=== PATIENT | male | born 2000 | race African-American/Black ===

== ENCOUNTER 2023-06-19 14:17 | Inpatient (IN) ==
--- NOTE | 2023-06-19 14:31 | Emergency Department Note ---
Impression & Plan Chest pain ADMIT ED Provider Note HPI: History obtained from patient. The patient is a 22-year-old male who presents emergency department with chief complaint of chest pain. Patient states that about 1 hour prior to arrival to the ED he was on a treadmill, he states that he was running for short period of time when he developed some pain in the left side of his chest that was relatively severe. Patient states the pain persisted and therefore he came to the ED to be assessed. On arrival here to the ED the patient is in no acute distress. He is hemodynamically stable and saturating well on room air. He states he does have some continued chest pain in the left part of his chest. ROS: - Per HPI Differential Diagnosis: ACS, pulmonary embolism, aortic dissection, pneumothorax, esophagitis, amongst other potential pathologies. *Outpatient medications and allergy history reviewed. 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: (As interpreted by myself): - An order was placed for continuous cardiac monitoring - Patient was noted to be in sinus rhythm with a rate of 80 EKG #1 (As interpreted by myself): Rate: 57 Rhythm: Sinus bradycardia Intervals: Within normal limits ST changes: There is mild upward sloping ST elevation in leads V1 and V2 with ST depression in leads V4 and V5 Time: 1425 EKG #2: Rate: 69 Rhythm: Normal sinus rhythm Intervals: Within normal limits ST changes: There is ST elevation in leads aVR, V1, V2, there is reciprocal ST depression in leads V4 through V6 and also new inferior lead ST depression in leads II, III, and aVF Time: 1502 Chest x-ray: (As interpreted by myself): No acute disease Interventions provided in ED: -IV morphine, IV Zofran, IV Dilaudid, aspirin Medical Decision Making: Shortly after the patient arrived IV was established and lab work obtained, patient was placed on cardiac nurse specialist. Patient's initial EKG was brought to me by the employment program representative, there are some concerning changes including mild upward sloping ST elevation in leads V1 and V2 with some ST depression in leads V4 and V5. I did review the patient's EKG with the on-call critical care nurse, Dr. Woodward, and decision was made at this time to treat medically and await troponin result. While awaiting lab work patient was given IV morphine and IV Zofran, his chest pain acutely worsened. Patient was given additional pain medication and chest x-ray was performed that did not show any evidence of any acute process per my interpretation. Patient was taken for CT angiography of the chest urgently and upon my review and in discussion with the interpreting radiologist, there is no evidence of any aortic dissection, however there is some nonspecific finding within the LAD concerning for possible thrombus. Repeat EKG was obtained and per my interpretation worsening changes were noted with some ST elevation in leads aVR, V1 and V2, with reciprocal depression worsening in leads V4 through V6. There is also a finding of some ST depression in the inferior leads. At this time heart alert was activated and patient was evaluated the bedside by Dr. Woodward of cardiology. His troponin did return negative. Patient had some hypoxia following IV Dilaudid and was placed on an oxy mask with good improvement. At this time patient was transferred to the cardiac catheterization lab for further management. Case was discussed with the on-call hospitalist, Dr. Guevara, who is in agreement for admission. Consultants/Discussions held with other healthcare providers: -Interventional Cardiology, Dr. Woodward -Hospitalist, Dr. Guevara Disposition discussion held by myself with: -Patient and patient's father over the phone * CRITICAL CARE TIME: ( 55 ) minutes -Management of patient with acute ischemic changes on EKG/ST elevation [place] requiring activation of cardiac catheterization lab, stabilization of hypoxia requiring oxy mask for oxygen saturations at 84% on room air, interpretation of multiple EKGs, discussion with consulting services/interventional radiology, discussion with patient and family over the phone in regards to plan of care, discussion with hospitalist service for arrangement of admission. Diagnosis: 1. ST elevation myocardial infarction, acute 2. Chest pain, acute 3. Hypoxia, acute Disposition: Admission Obinna Tsang DO Emergency Medicine Past Med/Surg History Social History Smoking Status: Never smoker Hx Alcohol Use: No Hx Substance Use: No Preferred Language: Qatari Communication Ability: Effective Low Heel Builder Required: No Beliefs That Will Affect Care: None Current Living Situation: Other Current Living Situation Comment: apartment with room-mate Other Information That Helps Us Care for You: No Feels Safe at Home: Yes Safety Concerns: Feels Safe At This Time Assistive Devices: Contacts Assistive Devices Comment: contacts Allergies Allergies Allergy/AdvReac Type Severity Reaction Status Date / Time No Known Allergies Allergy Verified 06/19/23 15:19 Home Meds Home Medications Medication Instructions Recorded Confirmed No Known Home Medications 06/19/23 06/19/23 Results & Data (ED) Vital Signs Vital Signs - 24 hr 06/19/23 14:27 06/19/23 14:27 06/19/23 14:30 Temperature Temperature Source Pulse Rate 63 Pulse Rate [Apical] Pulse Rate from SpO2 Sensor 64 Respiratory Rate 20 Respiratory Effort / Characteristics Respiratory Depth Blood Pressure 127/92 Blood Pressure [Right Arm] Blood Pressure Mean 111 Blood Pressure Mean [Right Arm] Pulse Oximetry 100 100 Oxygen Delivery Method Room Air Oxygen Flow Rate Sepsis Recent Fever Within 48 Hours Sepsis New/Unexplained Change in Mental Status Sepsis Action Taken by Nursing 06/19/23 14:30 06/19/23 14:37 06/19/23 14:40 Temperature Temperature Source Pulse Rate 57 L Pulse Rate [Apical] Pulse Rate from SpO2 Sensor 56 L Respiratory Rate 16 Respiratory Effort / Characteristics Respiratory Depth Blood Pressure 130/89 Blood Pressure [Right Arm] Blood Pressure Mean 97 Blood Pressure Mean [Right Arm] Pulse Oximetry 100 100 Oxygen Delivery Method Room Air Oxygen Flow Rate Sepsis Recent Fever Within 48 Hours Sepsis New/Unexplained Change in Mental Status Sepsis Action Taken by Nursing 06/19/23 14:40 06/19/23 14:54 06/19/23 14:55 Temperature Temperature Source Pulse Rate 59 L 55 L Pulse Rate [Apical] Pulse Rate from SpO2 Sensor 60 55 L Respiratory Rate 17 23 Respiratory Effort / Characteristics Respiratory Depth Blood Pressure 100/65 Blood Pressure [Right Arm] Blood Pressure Mean 73 Blood Pressure Mean [Right Arm] Pulse Oximetry 98 97 Oxygen Delivery Method Oxygen Flow Rate Sepsis Recent Fever Within 48 Hours Sepsis New/Unexplained Change in Mental Status Sepsis Action Taken by Nursing 06/19/23 14:55 06/19/23 15:00 06/19/23 15:00 Temperature Temperature Source Pulse Rate 55 L 83 Pulse Rate [Apical] Pulse Rate from SpO2 Sensor 56 L 82 Respiratory Rate 23 14 Respiratory Effort / Characteristics Respiratory Depth Blood Pressure 134/95 Blood Pressure [Right Arm] Blood Pressure Mean 107 Blood Pressure Mean [Right Arm] Pulse Oximetry 91 94 Oxygen Delivery Method Oxygen Flow Rate Sepsis Recent Fever Within 48 Hours Sepsis New/Unexplained Change in Mental Status Sepsis Action Taken by Nursing 06/19/23 15:02 06/19/23 15:10 06/19/23 15:16 Temperature 36.5 C Temperature Source Oral Pulse Rate 91 H Pulse Rate [Apical] 80 Pulse Rate from SpO2 Sensor 91 H Respiratory Rate 17 20 Respiratory Effort / Characteristics Non-Labored Respiratory Depth Normal Blood Pressure Blood Pressure [Right Arm] 134/95 Blood Pressure Mean Blood Pressure Mean [Right Arm] 108 Pulse Oximetry 100 94 Oxygen Delivery Method Room Air Oxygen Flow Rate Sepsis Recent Fever Within 48 Hours No Sepsis New/Unexplained Change in Mental Status N/A Sepsis Action Taken by Nursing No Action Required 06/19/23 15:16 06/19/23 15:16 06/19/23 15:18 Temperature Temperature Source Pulse Rate 83 83 Pulse Rate [Apical] Pulse Rate from SpO2 Sensor 78 Respiratory Rate 10 L Respiratory Effort / Characteristics Respiratory Depth Blood Pressure 133/84 Blood Pressure [Right Arm] Blood Pressure Mean 87 Blood Pressure Mean [Right Arm] Pulse Oximetry 84 L Oxygen Delivery Method Oxygen Flow Rate Sepsis Recent Fever Within 48 Hours Sepsis New/Unexplained Change in Mental Status Sepsis Action Taken by Nursing 06/19/23 15:20 06/19/23 15:30 06/19/23 15:31 Temperature Temperature Source Pulse Rate 77 90 Pulse Rate [Apical] Pulse Rate from SpO2 Sensor 74 88 Respiratory Rate 13 25 H Respiratory Effort / Characteristics Respiratory Depth Blood Pressure 114/79 Blood Pressure [Right Arm] Blood Pressure Mean 92 Blood Pressure Mean [Right Arm] Pulse Oximetry 93 91 Oxygen Delivery Method Oxygen Flow Rate Sepsis Recent Fever Within 48 Hours Sepsis New/Unexplained Change in Mental Status Sepsis Action Taken by Nursing 06/19/23 15:31 06/19/23 15:40 06/19/23 15:40 Temperature Temperature Source Pulse Rate 85 Pulse Rate [Apical] Pulse Rate from SpO2 Sensor 86 Respiratory Rate 24 Respiratory Effort / Characteristics Respiratory Depth Blood Pressure Blood Pressure [Right Arm] Blood Pressure Mean Blood Pressure Mean [Right Arm] Pulse Oximetry 87 L 82 L 95 Oxygen Delivery Method Room Air Oxymask Oxygen Flow Rate 10 Sepsis Recent Fever Within 48 Hours Sepsis New/Unexplained Change in Mental Status Sepsis Action Taken by Nursing 06/19/23 15:41 06/19/23 15:45 06/19/23 15:45 Temperature 36.6 C Temperature Source Oral Pulse Rate 74 Pulse Rate [Apical] Pulse Rate from SpO2 Sensor 78 Respiratory Rate 22 Respiratory Effort / Characteristics Respiratory Depth Blood Pressure 121/77 Blood Pressure [Right Arm] Blood Pressure Mean 99 Blood Pressure Mean [Right Arm] Pulse Oximetry 96 Oxygen Delivery Method Oxygen Flow Rate Sepsis Recent Fever Within 48 Hours Sepsis New/Unexplained Change in Mental Status Sepsis Action Taken by Nursing 06/19/23 15:47 06/19/23 17:26 06/19/23 17:28 Temperature Temperature Source Pulse Rate 89 104 H Pulse Rate [Apical] Pulse Rate from SpO2 Sensor 88 Respiratory Rate 20 32 H Respiratory Effort / Characteristics Respiratory Depth Blood Pressure 117/96 Blood Pressure [Right Arm] Blood Pressure Mean 102 Blood Pressure Mean [Right Arm] Pulse Oximetry 93 Oxygen Delivery Method Oxygen Flow Rate Sepsis Recent Fever Within 48 Hours Sepsis New/Unexplained Change in Mental Status Sepsis Action Taken by Nursing 06/19/23 17:30 06/19/23 17:30 Temperature Temperature Source Pulse Rate 92 H Pulse Rate [Apical] Pulse Rate from SpO2 Sensor Respiratory Rate 27 H Respiratory Effort / Characteristics Respiratory Depth Blood Pressure 132/84 Blood Pressure [Right Arm] Blood Pressure Mean 106 Blood Pressure Mean [Right Arm] Pulse Oximetry Oxygen Delivery Method Oxygen Flow Rate Sepsis Recent Fever Within 48 Hours Sepsis New/Unexplained Change in Mental Status Sepsis Action Taken by Nursing Laboratory Data 06/19/23 14:25 06/19/23 14:25 Lab Results 06/19/23 06/19/23 Range/Units 14:25 16:21 WBC 7.81 (4.8-10.8) K/ul RBC 5.23 (4.70-6.10) M/uL Hgb 14.5 (14.0-18.0) g/dl Hct 44.8 (42.0-52.0) % MCV 85.7 (80.0-100.0) fL MCH 27.7 (25.0-34.0) pg MCHC 32.4 (32.0-36.0) g/dL RDW Std Deviation 41.0 (36.4-46.3) fL RDW Coeff of Faby 13.2 (11.5-14.5) % Plt Count 217 (130-400) K/uL MPV 10.9 (9.4-12.4) fL Neutrophils % (Manual) 33 % Lymphocytes % (Manual) 37 % Reactive Lymphs % (Man) 20 % Monocytes % (Manual) 8 % Eosinophils % (Manual) 1 % Basophils % (Manual) 1 % Neutrophils # (Manual) 2.58 (1.40-6.50) K/uL Total Absolute Neuts 2.58 (1.4-6.5) K/uL Lymphocytes # (Manual) 2.89 (1.2-3.4) K/uL Reactive Lymphs # 1.56 K/uL Total Abs Lymphocytes 4.45 H (1.2-3.4) K/uL Monocytes # (Manual) 0.62 H (0.11-0.59) K/uL Eosinophils # (Manual) 0.08 (0-0.50) K/uL Basophils # (Manual) 0.08 (0-0.2) K/uL PT 11.5 (9.0-12.0) Seconds INR 1.1 (0.9-1.1) Activ Coag Time Kaolin 298 H (94-140) SECONDS D-Dimer 290 (0-500) ug/L FEU Sodium 136 (136-145) mmol/L Potassium 3.5 (3.5-5.1) mmol/L Chloride 103 (98-107) mmol/L Carbon Dioxide 26 (21-32) mmol/L Anion Gap 7 (3-11) BUN 12 (6-23) mg/dl Creatinine 1.01 (0.6-1.4) mg/dl Est Cr Clr Drug Dosing 106.3 ml/min Est GFR ( Amer) 120.9 ml/min Est GFR (Non-Af Amer) 104.4 ml/min BUN/Creatinine Ratio 11.9 (10-20) Glucose 130 H (70-99(Fasting)) mg/dl Calcium 9.2 (8.6-10.3) mg/dl Total Bilirubin 0.3 (0.2-1.0) mg/dl AST 27 (13-39) U/L ALT 44 (7-52) U/L Alkaline Phosphatase 86 (34-104) U/L Troponin I High Sens 9.9 (0-20) pg/ml Total Protein 7.1 (6.0-8.3) gm/dl Albumin 3.9 (3.4-5.0) gm/dl Globulin 3.2 (2.5-4.0) gm/dl Albumin/Globulin Ratio 1.2 (0.9-2) Lipase 8 L (11-82) U/L Administered Medications Eptifibatide (Integrilin) 75 mg in 100 mls @ 12.448 mls/hr IV .Q8H2M [facility]; Protocol Stop: 06/20/23 06:00 Last Admin: 06/19/23 17:58 Dose: 2 mcg/kg/min, 12.4 mls/hr Documented By: RASHEED Co-signed By: ELIF Amiodarone HCl/Dextrose (Nexterone / D5w) 360 mg in 200 mls @ 33.333 mls/hr IV ONE ONE; Protocol Stop: 06/19/23 23:25 Last Admin: 06/19/23 17:57 Dose: 1 mg/min, 33.3 mls/hr Documented By: RASHEED Co-signed By: ELIF Norepinephrine Bitartrate (Levophed/D5w) 4 mg in 250 mls @ 14.588 mls/hr IV .Q17H9M [facility]; Protocol Stop: 07/19/23 17:29 Last Admin: 06/19/23 17:58 Dose: Not Given Documented By: RASHEED Discontinued Medications Amiodarone HCl/Dextrose (Amiodarone 360mg / 200ml D5w (Lime Sludge Kiln Operator Use Only)) Confirm Administered Dose 360 mg IV .STK-MED ONE Stop: 06/19/23 16:22 Last Admin: 06/19/23 16:54 Dose: 360 mg Documented By: ALL Amiodarone HCl/Dextrose (Amiodarone 360mg / 200ml D5w (Lime Sludge Kiln Operator Use Only)) Confirm Administered Dose 360 mg IV .STK-MED ONE Stop: 06/19/23 16:46 Last Admin: 06/19/23 16:54 Dose: 360 mg Documented By: ALL Amiodarone HCl/Dextrose (Amiodarone 150mg / 100ml D5w (Lime Sludge Kiln Operator Use Only)) Confirm Administered Dose 150 mg IV .STK-MED ONE Stop: 06/19/23 16:51 Last Admin: 06/19/23 17:56 Dose: Not Given Documented By: RASHEED Aspirin (Aspirin Chew 324 Mg) 324 mg PO NOW STA Stop: 06/19/23 14:55 Last Admin: 06/19/23 14:57 Dose: 324 mg Documented By: ML Atropine Sulfate (Atropine Sulfate 0.1 Mg/Ml 10ml Syr) Confirm Administered Dose 1 mg IV .STK-MED ONE Stop: 06/19/23 16:17 Last Admin: 06/19/23 17:56 Dose: Not Given Documented By: RASHEED Eptifibatide (Eptifibatide 2 Mg/Ml 10 Ml Vial (Lime Sludge Kiln Operator Use Only)) Confirm Administered Dose 40 mg IV .STK-MED ONE Stop: 06/19/23 16:15 Last Admin: 06/19/23 16:53 Dose: 8.6 ml Documented By: ALL Eptifibatide (Eptifibatide 0.75 Mg/Ml 75mg Vial (Lime Sludge Kiln Operator Use Only)) Confirm Administered Dose 75 mg IV .STK-MED ONE Stop: 06/19/23 16:15 Last Increment: 06/19/23 16:53 Dose: 12.3 mg Documented By: ALL Fentanyl Citrate (Fentanyl Citrate Pf 100 Mcg/2 Ml Vial) Confirm Administered Dose 100 mcg .ROUTE .STK-MED ONE Stop: 06/19/23 15:41 Last Increment: 06/19/23 16:51 Dose: 50 mcg Documented By: ALL Furosemide (Furosemide 40 Mg/4 Ml Vial) 40 mg IV ONE ONE Stop: 06/19/23 17:46 Last Admin: 06/19/23 18:15 Dose: 40 mg Documented By: RASHEED Heparin Sodium (Porcine) (Heparin (Porcine) 1000 Unit/Ml 10 Ml (Lime [employer] Operator Use Only)) Confirm Administered Dose 10,000 units .ROUTE .STK-MED ONE Stop: 06/19/23 15:40 Last Admin: 06/19/23 16:50 Dose: 10,000 units Documented By: LAL Heparin Sodium/Sodium Chloride (Heparin In Nss Infusion 1000 Unit/500 Ml (2 U/Ml) Bag) Confirm Administered Dose 3,000 units IV .STK-MED ONE Stop: 06/19/23 15:41 Last Admin: 06/19/23 16:52 Dose: 3,000 units Documented By: ALL Hydromorphone HCl (Hydromorphone Inj 0.5 Mg/0.5 Ml Syr) Confirm Administered Dose 0.5 mg .ROUTE .STK-MED ONE Stop: 06/19/23 15:19 Last Admin: 06/19/23 15:21 Dose: Not Given Documented By: ES Hydromorphone HCl (Hydromorphone Inj 0.5 Mg/0.5 Ml Syr) 0.5 mg IV NOW STA Stop: 06/19/23 15:20 Last Admin: 06/19/23 15:20 Dose: 0.5 mg Documented By: JORDYN Sodium Chloride (Nss) 500 mls @ 999 mls/hr IV .Q31M STA Stop: 06/19/23 14:53 Last Infusion: 06/19/23 15:15 Dose: Infused Documented By: Admin: 06/19/23 14:34 Dose: 999 mls/hr Documented By: ROBERT Influenza Virus Vaccine Quadrival (Influenza Virus Quadrivalent Vaccine (Iiv4) 0.5 Ml Syr) 0.5 ml IM .ONCE ONE Stop: 06/19/23 18:18 Last Admin: 06/19/23 19:30 Dose: Not Given Documented By: MMG Ioversol (Optiray 320 125ml) 119 ml IV ONCE ONE Stop: 06/19/23 15:54 Last Admin: 06/19/23 15:21 Dose: Not Given Documented By: JORDYN Midazolam HCl (Midazolam Hcl 1 Mg/Ml 2ml Vial) Confirm Administered Dose 2 mg .ROUTE .STK-MED ONE Stop: 06/19/23 15:40 Last Increment: 06/19/23 16:50 Dose: 1 mg Documented By: ALL Morphine Sulfate (Morphine Sulfate 4 Mg/Ml 1 Ml Carp\Vial) 4 mg IV NOW STA Stop: 06/19/23 14:31 Last Admin: 06/19/23 14:37 Dose: 4 mg Documented By: ML Morphine Sulfate (Morphine Sulfate 4 Mg/Ml 1 Ml Carp\Vial) 4 mg IV NOW STA Stop: 06/19/23 14:55 Last Admin: 06/19/23 14:57 Dose: 4 mg Documented By: ML Naloxone HCl (Naloxone Hcl 0.4 Mg/1 Ml Vial/Carp) Confirm Administered Dose 0.4 mg .ROUTE .STK-MED ONE Stop: 06/19/23 16:10 Last Admin: 06/19/23 16:53 Dose: Not Given Documented By: ALL Nicardipine HCl (Nicardipine Hcl Inj 2.5 Mg/Ml 10 Ml Amp) Confirm Administered Dose 25 mg .ROUTE .STK-MED ONE Stop: 06/19/23 15:40 Last Admin: 06/19/23 16:51 Dose: 25 mg Documented By: ALL Nitroglycerin/Dextrose (Nitroglycerin/D5w 100mcg/Ml 20ml Syr) Confirm Administered Dose 2,000 mcg .ROUTE .STK-MED ONE Stop: 06/19/23 16:04 Last Admin: 06/19/23 16:52 Dose: 2,000 mcg Documented By: ALL Norepinephrine Bitartrate (Norepinephrine/D5w 4 Mg/250 Ml) Confirm Administered Dose 4 mg IV .STK-MED ONE Stop: 06/19/23 16:17 Last Admin: 06/19/23 16:54 Dose: 4 mg Documented By: ALL Ondansetron HCl (Ondansetron Inj 2 Mg/Ml 2 Ml Vial) 4 mg IV NOW STA Stop: 06/19/23 14:31 Last Admin: 06/19/23 14:35 Dose: 4 mg Documented By: ML Ondansetron HCl (Ondansetron Inj 2 Mg/Ml 2 Ml Vial) 4 mg IV NOW STA Stop: 06/19/23 15:32 Last Admin: 06/19/23 16:51 Dose: Not Given Documented By: ALL Ticagrelor (Ticagrelor 90 Mg Tab) Confirm Administered Dose 180 mg .ROUTE .STK- MED ONE Stop: 06/19/23 16:51 Last Admin: 06/19/23 16:55 Dose: 180 mg Documented By: ALL Imaging Data Radiologist's Impression: Chest X-Ray 06/19/23 14:23 XR chest 1V portable HISTORY: 22 years-old Male Chest pain, nonspecific COMPARISON: CTA chest of same day TECHNIQUE: AP view of the chest FINDINGS: Cardiac silhouette is upper limits of normal in size. No pneumothorax, pleural effusion or airspace consolidation. The bones appear intact. IMPRESSION: No acute process. ACT 112: Negative or not required by law. The above report was generated using voice recognition software. It may contain grammatical, syntax or spelling errors. Electronically signed by: Guillaume Morrell M.D. 06/19/2023 2:58 PM Chest CTA 06/19/23 14:37 CT angio chest dissec wo/w con CT DOSE: 693.09 mGy.cm HISTORY: 22 years-old Male with CP. Acute chest pain with shortness of breath TECHNIQUE: Multiple CTA images of the chest were obtained both with and without the intravenous administration of 119 ml Optiray. Coronal and sagittal MIPS were obtained from the axial data set and were submitted for review. All measurements were obtained according to NASCET criteria. A dose lowering technique was utilized adhering to the principles of ALARA. COMPARISON: Chest radiograph of same day FINDINGS: CTA: The heart is mildly enlarged. No pericardial effusion. Bovine morphology of the thoracic aortic arch. Patency of the imaged great vessels without thoracic aortic aneurysm, dissection or intramural hematoma. No pulmonary emboli identified. The coronary arteries are not well evaluated without cardiac gating however there is a 1.6 cm focus of soft tissue density noted on image 110 series 7 within the region of the left anterior descending artery.. CT CHEST: Unremarkable thyroid. Thymic tissue in the anterior mediastinum. No pathologically enlarged lymph nodes identified. There is no pneumothorax, pleural effusion, or airspace consolidation, pulmonary edema or suspicious pulmonary nodule. The central airways are patent. No acute upper abdominal abnormality. Unremarkable soft tissues. No acute fracture. IMPRESSION: 1. Unremarkable appearance of the thoracic aorta and pulmonary artery. 2. The coronary arteries are not well evaluated without cardiac gating CT. Within the limitations of the study, there is focal abnormality involving the proximal to mid aspect of the left anterior descending artery which should be correlated with EKG and laboratory analysis in order to exclude a thrombus. ACT 112: Negative or not required by law. The above report was generated using voice recognition software. It may contain grammatical, syntax or spelling errors. Electronically signed by: Guillaume Morrell M.D. 06/19/2023 3:20 PM Discharge Plan Visit Data Chief Complaint: Chest Pain Stated Complaint: CHEST PAIN ED Provider: Obinna Tsang Discharge Problem: Chest pain Patient Disposition: Admitted As Inpatient Discharge Instructions Interventions: ED Discharge Assessment Last Done: 06/19/23 15:50 Discharge Problem: Chest pain Qualifiers: Chest pain type: unspecified Qualified Code(s): R07.9 - Chest pain, unspecified
[2023-06-19] MEDS: SODIUM CHLORIDE 0.9% 500 ML IV STA (14:34)
[2023-06-19] MEDS: ONDANSETRON INJ 2 MG/ML 2 ML VIAL IV STA ×2 (14:35→16:51)
[2023-06-19] MEDS: MoRPHine SULFATE 4 MG/ML 1 ML CARP\\VIAL IV STA ×2 (14:37→14:57)
[2023-06-19 14:51] LABS: Hematocrit (blood only) 44.8 % (42.0-52.0); Hemoglobin 14.5 g/dl (14.0-18.0); Mean Corpuscular Hemoglobin 27.7 pg (25.0-34.0); Mean Corpuscular Hgb Conc 32.4 g/dL (32.0-36.0); Mean Corpuscular Volume 85.7 fL (80.0-100.0); Mean Platelet Volume 10.9 fL (9.4-12.4); Platelet Count 217 K/uL (130-400); RDW Coefficient of Variation 13.2 % (11.5-14.5); Red Blood Count 5.23 M/uL (4.70-6.10); White Blood Count 7.81 K/ul (4.8-10.8)
[2023-06-19] MEDS: ASPIRIN CHEW 324 MG PO STA (14:57)
--- NOTE | 2023-06-19 15:00 | XRay Report ---
XR chest 1V portable HISTORY: 22 years-old Male Chest pain, nonspecific COMPARISON: CTA chest of same day TECHNIQUE: AP view of the chest FINDINGS: Cardiac silhouette is upper limits of normal in size. No pneumothorax, pleural effusion or airspace c onsolidation. The bones appear intact. IMPRESSION: No acute process. ACT 112: Negative or not required by law. The above report was generated using voice recognition software. It may contain grammatical, syntax o r spelling errors. Electronically signed by: Guillaume Morrell M.D. 06/19/2023 2:58 PM
[2023-06-19 15:05] LABS: Albumin Globulin Ratio 1.2 (0.9-2); Albumin Level 3.9 gm/dl (3.4-5.0); BUN Creatinine Ratio 11.9 (10-20); Bilirubin,Total 0.3 mg/dl (0.2-1.0); Calcium 9.2 mg/dl (8.6-10.3); Creatinine Clr Calc Pharmacy 106.3 ml/min; Est GFR (African American) 120.9 ml/min; Est GFR (Non-African American) 104.4 ml/min; Globulin 3.2 gm/dl (2.5-4.0); Potassium 3.5 mmol/L (3.5-5.1); Total Protein 7.1 gm/dl (6.0-8.3)
[2023-06-19 15:09] LABS: D Dimer 290 ug/L FEU (0-500); INR 1.1 (0.9-1.1); Prothrombin Time 11.5 Seconds (9.0-12.0)
[2023-06-19 15:10] LABS: Troponin I High Sensitivity 9.9 pg/ml (0-20)
[2023-06-19] MEDS: HYDROmorphone INJ 0.5 MG/0.5 ML SYR IV STA (15:20)
[2023-06-19] MEDS: OPTIRAY 320 125ml IV ONE (15:21)
[2023-06-19] MEDS: HYDROmorphone INJ 0.5 MG/0.5 ML SYR ONE (15:21)
--- NOTE | 2023-06-19 15:22 | CT Scan Report ---
CT angio chest dissec wo/w con CT DOSE: 693.09 mGy.cm HISTORY: 22 years-old Male with CP. Acute chest pain with shortness of breath TECHNIQUE: Multiple CTA images of the chest were obtained both with and without the intravenous admin istration of 119 ml Optiray. Coronal and sagittal MIPS were obtained from the axial data set and wer e submitted for review. All measurements were obtained according to NASCET criteria. A dose lowering technique was utilized adhering to the principles of ALARA. COMPARISON: Chest radiograph of same day FINDINGS: CTA: The heart is mildly enlarged. No pericardial effusion. Bovine morphology of the thoracic aortic arch. Patency of the imaged great vessels without thoracic aortic aneurysm, dissection or intramural hemat chandra. No pulmonary emboli identified. The coronary arteries are not well evaluated without cardiac gat ing however there is a 1.6 cm focus of soft tissue density noted on image 110 series 7 within the reg ion of the left anterior descending artery.. CT CHEST: Unremarkable thyroid. Thymic tissue in the anterior mediastinum. No pathologically enlarged lymph nod es identified. There is no pneumothorax, pleural effusion, or airspace consolidation, pulmonary edema or suspicious pulmonary nodule. The central airways are patent. No acute upper abdominal abnormality. Unremarkable soft tissues. No acute fracture. IMPRESSION: 1. Unremarkable appearance of the thoracic aorta and pulmonary artery. 2. The coronary arteries are not well evaluated without cardiac gating CT. Within the limitations of the study, there is focal abnormality involving the proximal to mid aspect of the left anterior desce nding artery which should be correlated with EKG and laboratory analysis in order to exclude a thromb us. ACT 112: Negative or not required by law. The above report was generated using voice recognition software. It may contain grammatical, syntax o r spelling errors. Electronically signed by: Guillaume Morrell M.D. 06/19/2023 3:20 PM
[2023-06-19 15:42] LABS: ALC (manual) 4.45 K/uL (1.2-3.4); ANC (manual) 2.58 K/uL (1.4-6.5); Basophils # (manual) 0.08 K/uL (0-0.2); Basophils % (manual) 1 %; Eosinophils # (manual) 0.08 K/uL (0-0.50); Eosinophils % (manual) 1 %; Lymphocytes # (manual) 2.89 K/uL (1.2-3.4); Lymphocytes % (manual) 37 %; Monocytes # (manual) 0.62 K/uL (0.11-0.59); Monocytes % (manual) 8 %; Neutrophils # (manual) 2.58 K/uL (1.40-6.50); Neutrophils % (manual) 33 %; Reactive Lymphocytes # (manual) 1.56 K/uL; Reactive Lymphocytes % (manual) 20 %
--- NOTE | 2023-06-19 15:55 | Pre Anesthesia Assessment ---
Date of Service June 19, 2023 Pre Sedation Assessment Vital Signs Temp Pulse Pulse Resp BP BP Pulse Ox 06/19/23 15:40 95 06/19/23 15:40 82 L 06/19/23 15:31 85 24 87 L 06/19/23 15:31 114/79 06/19/23 15:30 90 25 H 91 06/19/23 15:20 77 13 93 06/19/23 15:18 83 06/19/23 15:16 133/84 06/19/23 15:16 83 10 L 84 L 06/19/23 15:16 80 20 134/95 94 06/19/23 15:10 91 H 17 100 06/19/23 15:02 97.7 F 06/19/23 15:00 134/95 06/19/23 15:00 83 14 94 06/19/23 14:55 55 L 23 91 06/19/23 14:55 100/65 06/19/23 14:54 55 L 23 97 06/19/23 14:40 59 L 17 98 06/19/23 14:40 130/89 06/19/23 14:37 100 06/19/23 14:30 57 L 16 100 06/19/23 14:30 127/92 06/19/23 14:27 63 20 100 06/19/23 14:27 100 O2 Del Method O2 Flow Rate 06/19/23 15:40 Oxymask 10 06/19/23 15:40 Room Air 06/19/23 15:31 06/19/23 15:31 06/19/23 15:30 06/19/23 15:20 06/19/23 15:18 06/19/23 15:16 06/19/23 15:16 06/19/23 15:16 Room Air 06/19/23 15:10 06/19/23 15:02 06/19/23 15:00 06/19/23 15:00 06/19/23 14:55 06/19/23 14:55 06/19/23 14:54 06/19/23 14:40 06/19/23 14:40 06/19/23 14:37 Room Air 06/19/23 14:30 06/19/23 14:30 06/19/23 14:27 06/19/23 14:27 Room Air Cardiovascular + regular rate Respiratory + labored breathing Pre-Sedation Airway Assessment Smoking Status: Never smoker Hx Sleep Apnea: No Hx Difficult Intubation: No Short, Thick Neck: No Thyromental Distance: < 3.5 Finger Breadths Oral Cavity: + WNL Mallampati Class: III ASA: ASA3 Procedure Planning Contraindications for Sedation: none Current Medications Reviewed: Yes Notes The planned sedation has been discussed with the patient. Informed Consent was obtained. I have identified the patient, determined the appropriateness of sedation and have assessed the patient immediately prior to the procedure. All medicine(s) and interventions are by my order.
--- NOTE | 2023-06-19 16:02 | Cardiology Consultation ---
Date of Consultation June 19, 2023 Assessment & Plan (1) Acute AR: Plan Presentation concerning for acute AR with possible LAD obstruction. Recommend proceeding with emergent cardiac catheterization and possible PCI. No apparent contraindications to procedure. Discussed risks, benefits, alternatives of procedure with patient and they are willing to proceed. Further recommendations pending findings of coronary angiography. 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 No prior cardiac history. No known medical problems. 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 Chest pain began approximately 1 hour prior to arrival while he was running on treadmill. States he became increasingly short of breath with new progressive, severe left-sided chest pain. In ED chest pain continued to progress. ECG Showed sinus rhythm with evolving ST elevation in V1, V2 and ST depressions in V4 through V6. Initial HS TropI normal. Had CTA which showed unremarkable thoracic aorta, pulmonary arteries but there appeared to be a focal abnormality involving proximal to mid LAD. Stat echo showed LAD distribution wall motion abnormality with EF of 25%. Patient remained hemodynamically stable but continued to have 9 out of 10 chest pain requiring morphine/Dilaudid. Social History: No drugs or tobacco. Family History: No SCD or premature CAD Allergies Allergy/AdvReac Type Severity Reaction Status Date / Time No Known Allergies Allergy Verified 06/19/23 15:19 Home Medications Medication Instructions Recorded Confirmed Type No Known Home Medications 06/19/23 06/19/23 History Patient History Social History Smoking Status: Never smoker Preferred Language: Pashto Feels Safe at Home: Yes Review of Systems Review of Systems: All systems reviewed & are unremarkable except as noted in HPI & below Physical Exam Physical Exam: General: Uncomfortable HEENT: Sclerae anicteric Lungs: Clear anteriorly Cardiac: Regular rate and rhythm, no murmurs. Vascular: 2+ radial Abdomen: Soft, nontender Extremities: Well perfused, no peripheral edema Neuro: Nonfocal Psych: Alert orient x3, lethargic Results & Data Vital Signs (Past 12 Hours) Vital Signs Temp Pulse Pulse Resp BP BP Pulse Ox 06/19/23 15:40 95 06/19/23 15:40 82 L 06/19/23 15:31 85 24 87 L 06/19/23 15:31 114/79 06/19/23 15:30 90 25 H 91 06/19/23 15:20 77 13 93 06/19/23 15:18 83 06/19/23 15:16 133/84 06/19/23 15:16 83 10 L 84 L 06/19/23 15:16 80 20 134/95 94 06/19/23 15:10 91 H 17 100 06/19/23 15:02 97.7 F 06/19/23 15:00 134/95 06/19/23 15:00 83 14 94 06/19/23 14:55 55 L 23 91 06/19/23 14:55 100/65 06/19/23 14:54 55 L 23 97 06/19/23 14:40 59 L 17 98 06/19/23 14:40 130/89 06/19/23 14:37 100 06/19/23 14:30 57 L 16 100 06/19/23 14:30 127/92 06/19/23 14:27 63 20 100 06/19/23 14:27 100 O2 Del Method O2 Flow Rate 06/19/23 15:40 Oxymask 10 06/19/23 15:40 Room Air 06/19/23 15:31 06/19/23 15:31 06/19/23 15:30 06/19/23 15:20 06/19/23 15:18 06/19/23 15:16 06/19/23 15:16 06/19/23 15:16 Room Air 06/19/23 15:10 06/19/23 15:02 06/19/23 15:00 06/19/23 15:00 06/19/23 14:55 06/19/23 14:55 06/19/23 14:54 06/19/23 14:40 06/19/23 14:40 06/19/23 14:37 Room Air 06/19/23 14:30 06/19/23 14:30 06/19/23 14:27 06/19/23 14:27 Room Air PG Care Time/CCT Total # of Minutes Spent Total Time Spent with Patient: Total time spent is greater than 50% in coordination of care (as documented) at patient's floor/unit and/or counseling patient: Coding Level of Care Code 05643 OFFICE CONSULT LVL 4/40M Diagnoses Acute AR I21.9
--- OUTSIDE RECORDS SUMMARY | 2023-06-19 16:09 | External Medical Summary | Continuity of Care Document ---
Author Name Unknown Organization [address] [id number] Care Team Providers Care Foreign Correspondent Name Role Phone Blessing Slater Primary Care Physician [phone] Encounter [facility] [id number] Date(s): 02/04/23 - 02/04/[address] [phone] Encounter Diagnosis Allergic reaction(Discharge Diagnosis) - 02/06/23 GERD (gastroesophageal reflux disease)(Discharge Diagnosis) - 02/06/23 Discharge Disposition: Home or Self Care Attending Physician: MD Bryon, [place] Allergies, Adverse Reactions, Alerts No Known Allergies Assessment and Plan Extracted from: Title:Office Visit Note Author:MD Bryon, [facility] Date:02/04/23 1.Allergic reaction Resolved since 2 days ago w/o medication. Advise to avoid irritant. Return immediately if symptom recurs. 2.GERD (gastroesophageal reflux disease) Chronic. Stable. Continue medication: Omeprazole 20 mg once a day. NoRefill of medication done at this visit. Avoid triggers. Medications omeprazole Start: 02/04/23 9:13:00 EDT Start Date: 02/04/23 Status: Ordered Mental Status 02/04/23 Barriers to Learning one year None evide nt Mandatory Health Literacy Documentation Yes Health Literacy Communication Barriers N ever Primary Language Slovak Problem List Diagnosis Diagnosis Type Effective Dates Health Status Cl inical Service Informant Allergic reaction Discharge Diagnosis 02/06/23 GERD (gastroesophagea l reflux disease) Discharge Diagnosis 02/06/23 Vital Signs Most recent to oldest [Reference Range]: 1 Patient Weight 71.2 kg (02/04/23 9:13 AM) Heart Rate 77 bpm (02/04/23 9:13 AM) Respiratory Rate 16 br/min (02/04/23 9:13 AM) Blood Pressure 104/74mmHg (02/04/23 9:13 AM) Cuff Pulse Pressure 30 mmHg (02/04/23 9:13 AM) Social History Social History Type Response Smoking Status Never smoked cigaret amira Sex Male FCM Outpt Note * MD Bryon, [place]: PERFORM Event Display: FCM Outpt Note Authored Date: [id number] Chief Complaint started tuesday with itching all over. no rash, no bites. nothing visual. tuesday as well not as serious. tuesday started going away. no itching now History of Present Illness 22 y/o M c/o itching all over the body after removing the clothes4 days ago. Not able to sleep atnight. 2 days ago the itching resolved on it's own. No medication taken. States that it could be from drying sheet that he recently use. -GERD. Still taking Omeprazole 20 mg once a day Denies fever, headache, dizziness. Denies nasal congestion, ear pain Denies chest pain or shortness of breath Denies abdominal pain, nausea or vomiting, diarrhea or constipation Denies dysuria, frequency or urgency of urination Denies blood in the urine or stool Denies Numbness, tingling sensation or weakness of the extremities. Denies joint pain or muscle aches. Review of Systems see hpi Physical Exam Vitals & Measurements HR:77(Monitored) RR:16 BP:104/74 SpO2:98% WT:71.2kg WT:71.200kg(Dosing) PHQ2 Data(Data Documented on:02/04/2023 09:13) Emotional health assessment NEGATIVE General: alert and oriented, no acute distress Eye: PERRL, EOMI, normal conjunctiva HENT: normocephalic Neck: supple Resp: Lungs CTA, non-labored respirations, BS equal, symmetrical expansion CV: normal rate and rhythm, no murmur, no gallop, good pulses equal in all extremities, normal peripheral perfusion, no edema MS: normal gait Psychiatric: appropriate mood and affect, normal judgement, non-suicidal skin: no rashes. Assessment/Plan 1.Allergic reaction Resolved since 2 days ago w/o medication. Advise to avoid irritant. Return immediately if symptom recurs. 2.GERD (gastroesophageal reflux disease) Chronic. Stable. Continue medication: Omeprazole 20 mg once a day. NoRefill of medication done at this visit. Avoid triggers. Medications omeprazole Allergies NKA Social History Smoking Status Never smoked cigarettes Family History Hypertension: Mother and Father. Health Status Family Member(s) Recommendations Health Maintenance Pending(in the next year) OverDue Adult Influenza Vaccine due11/13/22and every 1year Due Adult COVID-19 Vaccination due02/06/23Unknown Frequency Adult Tdap/Td Vaccine due02/06/23Unknown Frequency Due In Future Body Mass Index not due until02/04/24and every 1year Satisfied(in the past 1 year) Satisfied Body Mass Index on12/28/22.Satisfied by REILLY Del Rosario [place] Hepatitis C Screening on12/06/22.Satisfied by Contributor_system, [facility] Electronic Signature on File Electronically Reviewed/Signed by: Blessing Slater MD Author Signature Dt/Tm:02/06/2023 05:05 PM Department of Family Medicine VS Patient Care team information Care Team Personnel Name: MD Slater [place] Position: Physician - Family Med Member Role: Primary Care Provider Address: Address: [address] [place] [address], [place] [address]
--- OUTSIDE RECORDS SUMMARY | 2023-06-19 16:09 | External Medical Summary | Continuity of Care Document ---
Author Name Unknown Organization [address] Address [address] [place] [id number] Care Team Providers Care Brick Sorter Name Role Phone Blessing Slater Primary Care Physician [phone] [facility] [id number] Date(s): 12/28/22 - [facility]28/[address] [facility] [facility] [address] [address] [phone] Encounter Diagnosis Healthcare maintenance(Discharge Diagnosis) - 12/27/22 Body mass index [BMI] 23.0-23.9, adult(Discharge Diagnosis) - 12/28/22 Hyperlipidemia(Discharge Diagnosis) - 12/28/22 Elevated liver enzymes(Discharge Diagnosis) - 12/28/22 Discharge Disposition: Home or Self Care Attending Physician: MD Bryon, [place] Allergies, Adverse Reactions, Alerts No Known Allergies Assessment and Plan Extracted from: Title:Office Visit Note Author:MD Bryon, [facility] Date:12/28/22 1.Healthcare maintenance - encouraged diet and exercise regimen appropriate for patient age and condition - routine dental and eye care per continuity - vaccinations reviewed and up to date per EHR -screening labs reviewed 2.Hyperlipidemia Discussed at length about high cholesterol with elevated liver enzymes. Advised diet and exercise. Recommended Mediterranean diet. Repeat in 6 months. 3.Elevated liver enzymes Probably cause by hyperlipidemia. Return to clinic in 6 months. Medications No Known Medications Mental Status 12/28/22 Barriers to Learning one year None evide nt Mandatory Health Literacy Documentation Yes Health Literacy Communication Barriers N ever Primary Language Maldivian Problem List Diagnosis Diagnosis Type Effective Dates Health Status Clinical Service Informant Healthcare maintenance Discharge Diagnosis 12/27/22 Body mass index [BMI] 23.0-23.9, adult Discharge Diagnosis 12/28/22 Non-Specified Hyperlipidemia Discharge Diagnosis 12/28/22 Elevated liver enzymes Discharge Diagnosis 12/28/22 Vital Signs Most recent to oldest [Reference Range]: 1 Height 170.5 cm (12/28/22 2:26 PM) Patient Weight 69.3 kg (12/28/22 2:26 PM) Body Mass Index 23.84 kg/m2 (12/28/22 2:26 PM) Heart Rate 82 bpm (12/28/22 2:26 PM) Respiratory Rate 16 br/min (12/28/22 2:26 PM) Blood Pressure 120/80mmHg (12/28/22 2:26 PM) Cuff Pulse Pressure 40 mmHg (12/28/22 2:26 PM) Social History Social History Type Response Smoking Status Never smoked cigaret amira Sex Male FCM Outpt Note * MD Bryon, [place]: PERFORM Event Display: FCM Outpt Note Authored Date: [id number] Chief Complaint CPE History of Present Illness 22y/o M here for CPE CC: No acute complaints at this time. HOSPITALIZATIONS: No hospitalizations in the last 12 months or severe acute injuries not accounted for in chart. DENTAL: Routine dental care without complaint: Q 6 months EYE: Routine eye care without issue presently: Q 1-2 years Medical Hx: H.pylori infection recently treated gerd PSHX: none FHx: no heart disease SHX: Tobacco-no Alcohol-no Illicit drug use-no exercise : 1-2x / week treadmill. tea, protein, snack, no fruits sexually active, condom, just 1 partner IMMUNIZATIONS: Reviewed in EHR. Immunizations that are due: Up To Date COVID Vaccine:2 COVID Boosters:2 COVID Infection SAFETY: Feeling safe at home and in relationships without concern. PSA: Reviewed AUA recommendations for PSA age 55-70 Q2 years. COLONOSCOPY: Reviewedlast COLO and need for next COLO: Denies fever, headache, dizziness. Denies nasal congestion, ear pain Denies chest pain or shortness of breath Denies nausea or vomiting, diarrhea or constipation Denies dysuria, frequency or urgency of urination Denies blood in the urine or stool Denies Numbness, tingling sensation or weakness of the extremities. Denies joint pain or muscle aches. Review of Systems see hpi Physical Exam Vitals & Measurements HR:82(Monitored) RR:16 BP:120/80 SpO2:9% HT:170.5cm WT:69.300kg(Dosing) WT:69.3kg BMI:23.84 PHQ2 Data(Data Documented on:12/28/2022 14:26) Emotional health assessment NEGATIVE General: alert and oriented, no acute distress Eye: PERRL, EOMI, normal conjunctiva HENT: normocephalic, TMs clear, normal hearing, moist oral mucosa, no pharyngeal erythema, no sinus tenderness Neck: supple, non-tender, no lymphadenopathy, no thyromegaly Resp: Lungs CTA, non-labored respirations, BS equal, symmetrical expansion CV: normal rate and rhythm, no murmur, no gallop, good pulses equal in all extremities, normal peripheral perfusion, no edema GI: soft, non-tender, non-distended, normal bowel sounds, no organomegaly : no CVA tenderness MS: normal ROM, normal strength, no tenderness, no swelling, no deformity, normal gait Integumentary: warm, dry, pink, no cyanosis, intact, moist, no pallor, no rash Neurologic: alert and oriented, normal sensory, normal motor, no focal Psychiatric: calm and cooperative, appropriate mood and affect, normal judgement, non-suicidal Assessment/Plan 1.Healthcare maintenance - encouraged diet and exercise regimen appropriate for patient age and condition - routine dental and eye care per continuity -vaccinations reviewed and up to date per EHR -screening labs reviewed 2.Hyperlipidemia Discussed at length about high cholesterol with elevated liver enzymes. Advised diet and exercise. Recommended Mediterranean diet. Repeat in 6 months. 3.Elevated liver enzymes Probably cause by hyperlipidemia. Return to clinic in 6 months. Allergies NKA Social History Smoking Status Never smoked cigarettes Family History Hypertension: Mother and Father. Health Status Family Member(s) Recommendations Health Maintenance Pending(in the next year) OverDue Adult Influenza Vaccine due11/13/22and every 1year Due Adult COVID-19 Vaccination due12/28/22Unknown Frequency Adult Tdap/Td Vaccine due12/28/22Unknown Frequency Hepatitis C Screening due12/28/22One-time only Due In Future Body Mass Index not due until12/28/23and every 1year Satisfied(in the past 1 year) Satisfied Body Mass Index on12/28/22.Satisfied by REILLY Del Rosario [place] Hepatitis C Screening on12/06/22.Satisfied by Contributor_system, [facility] Electronic Signature on File Electronically Reviewed/Signed by: Blessing Slater MD Author Signature Dt/Tm:12/28/2022 09:19 PM Department of Family Medicine VS Patient Care team information Care Team Personnel Name: MD Bryon, Blessing Position: Physician - Family Med Member Role: Primary Care Provider Address: Address: [address] [place] [address], [place] [address]
--- NOTE | 2023-06-19 16:11 | History & Physical Report ---
Date of Service June 19, 2023 Assessment & Plan (1) ST elevation myocardial infarction (STEMI) involving left anterior de scending (LAD) coronary artery in recovery phase: Plan: ACS, 100% LAD occlusion, PCI c/w VF x1 Rapid onset of 8/10 - 10/10 pain after being on the treadmill for several minutes. Presented to the ER for severe chest pain. Initial EKG was with ST depressions in V4/V5 and sinusoidal T wave in V1. Repeat EKG concerning for ST elevation in V2 and developing hyperacute T waves. CTA of the chest with unremarkable thoracic aorta and pulmonary artery. Coronary artery evaluation limited by modality however was concerning for a focal abnormality at the proximal to mid LAD. Reportedly had had leg pain prior to onset of his chest pain.At initial evaluation D-dimer was normal, troponin was normal, and CBC unremarkable. He was taken emergently to the [facility]. Stat echo was performed while in the ER, 25% EF with LAD territory abnormalities. Trop x 1 trended -He denies family history of early heart disease, CT in his parents/grandparents , and denies any family history of sudden cardiac Denies alcohol, tobacco, cocaine, supplement, and anabolic steroid use While undergoing cardiac catheterization. Patient did experience an episode of V-fib and received into relation x 1 with return to sinus rhythm . Sinus rhythm at time of assessment. Also w/ periprocedural hypoxia, improving post procedure. Chest x-ray is negative; D-dimer negative; CTA of the chest without acute pulmonary disease s/p PCI with SUSANA x1 to 100% LAD occlusion. Also w/ Subtotal mid RCA, 1% chronic distal RCA with collaterals noted. Patient is dissipated to have a staged PCI of the mid circumflex this hospitalization Cardiology consulted. Recommend Integrilin drip overnight, Amio drip overnight. Patient was transiently on norepinephrine this has been weaned at time of assessment in the ICU. Patient continued on DAPT with Brilinta, atorvastatin 80 mg, lipid panel/lpA/lpB pending. Patient is noted to have a residual - CBC, BMP daily Disposition: ICU CODE STATUS: Full code Diet: Heart healthy History of Present Illness Primary Care Provider: NO PCP Bruce is a 22-year-old male who presents to the ER as a heart alert. No prior cardiac hx or comorbidities. Bruce is seen At the bedside postcatheterization. Following transfer to the ICU he has had complete resolution of the pain that caused him to present to the ER. He reports he has never had chest pain leading up to this episode either of the severity he experienced or in a lesser degree. He reports that he tries to use a treadmill at least 2-3 times a week and has done so for a long time and has never had his exercise limited by chest pain or unusual shortness of breath. He reports his symptoms developed rapidly with a sudden escalation to 810/10 prior to admission after only being on the treadmill for short time. He denies any history of medical problems and takes no chronic medications or supplements. He denies recreational drug use and specifically denies cocaine, steroid use, supplement use. He does not use tobacco products or drink alcohol. 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 He reports he has no known family history of heart disease, diabetes, or sudden cardiac . He does have a family history of hypertension. Denies history of lung disease including asthma, and no history of COPD in his family. Medical History: Reviewed Medications: Reviewed Surgical History: Reviewed Family history: Reviewed Allergies: Reviewed Social History: No tobacco, etoh, or recreational drug use Code Status: Full Allergies Allergy/AdvReac Type Severity Reaction Status Date / Time No Known Allergies Allergy Verified 06/19/23 15:19 Home Medications Medication Instructions Recorded Confirmed Type No Known Home Medications 06/19/23 06/19/23 History Past Med/Surg History Social History Smoking Status: Never smoker Preferred Language: Finnish Feels Safe at Home: Yes Physical Exam Physical Exam: General: A&Ox3. NAD. Cooperative. HEENT: Atraumatic, normocephalic. Vision/hearing grossly intact without deficit. Pupils equal and reactive to light Pulm: CTAB A&P. -wheezes, -rales, -rhonchi. Symmetrical chest rise. No increased work of breathing. No respiratory distress. Cardiac: RRR, -mrg. Radial pulses intact and symmetrical. Abdominal: Nontender, nondistended, soft. BS present. Extremities: Right radial TR band in place. Sensation intact in all fingertips. Finger flexion/extension intact bilaterally. Results & Data Results & Data Vital Signs (Past 12 Hours) Vital Signs Temp Pulse Pulse Resp BP BP Pulse Ox 06/19/23 15:40 95 06/19/23 15:40 82 L 06/19/23 15:31 85 24 87 L 06/19/23 15:31 114/79 06/19/23 15:30 90 25 H 91 06/19/23 15:20 77 13 93 06/19/23 15:18 83 06/19/23 15:16 133/84 06/19/23 15:16 83 10 L 84 L 06/19/23 15:16 80 20 134/95 94 06/19/23 15:10 91 H 17 100 06/19/23 15:02 36.5 C 06/19/23 15:00 134/95 06/19/23 15:00 83 14 94 06/19/23 14:55 55 L 23 91 06/19/23 14:55 100/65 06/19/23 14:54 55 L 23 97 06/19/23 14:40 59 L 17 98 06/19/23 14:40 130/89 06/19/23 14:37 100 06/19/23 14:30 57 L 16 100 06/19/23 14:30 127/92 06/19/23 14:27 63 20 100 06/19/23 14:27 100 O2 Del Method O2 Flow Rate 06/19/23 15:40 Oxymask 10 06/19/23 15:40 Room Air 06/19/23 15:31 06/19/23 15:31 06/19/23 15:30 06/19/23 15:20 06/19/23 15:18 06/19/23 15:16 06/19/23 15:16 06/19/23 15:16 Room Air 06/19/23 15:10 06/19/23 15:02 06/19/23 15:00 06/19/23 15:00 06/19/23 14:55 06/19/23 14:55 06/19/23 14:54 06/19/23 14:40 06/19/23 14:40 06/19/23 14:37 Room Air 06/19/23 14:30 06/19/23 14:30 06/19/23 14:27 06/19/23 14:27 Room Air PG Care Time/CCT Total # of Minutes Spent Total Time Spent with Patient: Total time spent is greater than 50% in coordination of care (as documented) at patient's floor/unit and/or counseling patient: Coding Level of Care Code 94222 INT INP/OBS CARE MIN Diagnoses ST elevation myocardial infarction (STEMI) involving left anterior descending (LAD) coronary artery in recovery phase I21.02
[2023-06-19] MEDS: HEPARIN (PORCINE) 1000 UNIT/ML 10 ML (CATH LAB USE ONLY) ONE (16:50)
[2023-06-19] MEDS: MIDAZOLAM HCL 1 MG/ML 2ML VIAL ONE (16:50)
[2023-06-19] MEDS: niCARdipine HCL INJ 2.5 MG/ML 10 ML AMP ONE (16:51)
[2023-06-19] MEDS: fentaNYL citrate PF 100 MCG/2 ML VIAL ONE (16:51)
[2023-06-19] MEDS: NITROGLYCERIN/D5W 100MCG/ML 20ML SYR ONE (16:52)
[2023-06-19] MEDS: NALOXONE HCL 0.4 MG/1 ML VIAL/CARP ONE (16:53)
[2023-06-19] MEDS: EPTIFIBATIDE 2 MG/ML 10 ML VIAL (CATH LAB USE ONLY) IV ONE (16:53)
[2023-06-19] MEDS: EPTIFIBATIDE 0.75 MG/ML 75MG VIAL (CATH LAB USE ONLY) IV ONE (16:53)
[2023-06-19] MEDS: AMIODARONE 360MG / 200ML D5W (CATH LAB USE ONLY) IV ONE ×2 (16:54)
[2023-06-19] MEDS: NOREPINEPHRINE/D5W 4 MG/250 ML IV ONE (16:54)
[2023-06-19] MEDS: TICAGRELOR 90 MG TAB ONE (16:55)
[2023-06-19] MEDS ORDERED: ACETAMINOPHEN 325 MG TAB PO PRN (17:21)
[2023-06-19] MEDS ORDERED: EPTIFIBATIDE BOLUS/DRIP IV STA (17:21)
[2023-06-19] MEDS ORDERED: NITROGLYCERIN SL 0.4 MG/TAB TAB SL PRN (17:21)
--- NOTE | 2023-06-19 17:21 | Post Anesthesia Assessment ---
Date of Service June 19, 2023 Post Sedation Assessment Vital Signs Temp Pulse Pulse Resp BP BP Pulse Ox 06/19/23 15:40 95 06/19/23 15:40 82 L 06/19/23 15:31 85 24 87 L 06/19/23 15:31 114/79 06/19/23 15:30 90 25 H 91 06/19/23 15:20 77 13 93 06/19/23 15:18 83 06/19/23 15:16 133/84 06/19/23 15:16 83 10 L 84 L 06/19/23 15:16 80 20 134/95 94 06/19/23 15:10 91 H 17 100 06/19/23 15:02 97.7 F 06/19/23 15:00 134/95 06/19/23 15:00 83 14 94 06/19/23 14:55 55 L 23 91 06/19/23 14:55 100/65 06/19/23 14:54 55 L 23 97 06/19/23 14:40 59 L 17 98 06/19/23 14:40 130/89 06/19/23 14:37 100 06/19/23 14:30 57 L 16 100 06/19/23 14:30 127/92 06/19/23 14:27 63 20 100 06/19/23 14:27 100 O2 Del Method O2 Flow Rate 06/19/23 15:40 Oxymask 10 06/19/23 15:40 Room Air 06/19/23 15:31 06/19/23 15:31 06/19/23 15:30 06/19/23 15:20 06/19/23 15:18 06/19/23 15:16 06/19/23 15:16 06/19/23 15:16 Room Air 06/19/23 15:10 06/19/23 15:02 06/19/23 15:00 06/19/23 15:00 06/19/23 14:55 06/19/23 14:55 06/19/23 14:54 06/19/23 14:40 06/19/23 14:40 06/19/23 14:37 Room Air 06/19/23 14:30 06/19/23 14:30 06/19/23 14:27 06/19/23 14:27 Room Air Recovery Score Activity: Moves 4 extremities Respiration: Deep Breath/Cough Circulation: +/-20% PreAnes Value Consciousness: Fully Awake Oxygen Saturation: O2 needed for >90% Discharge Sedation Level of Care: Fast Track Phase II Post Sedation Plan On clinical assessment, the patient appears to have tolerated the sedation without complications. Patient is recovering as anticipated. Patient will continue to be monitored by nursing and may be discharged when sedation discharge criteria are met per below protocol. Upon Completions of procedure up to 15 minutes continue every 5 minute vital signs and the P.A.R. score; then discharge to a Phase I or Fast Track to Phase II per the following guidelines: * Discharge Patient to appropriate Phase II area if PAR is 8 or greater or return to pre- procedure baseline. The post - procedure orders will be as directed. * If PAR score is less than 8 or not return to pre-procedure baseline then patient will follow Phase I monitoring till PAR is reached for Phase II. The Phase I may be done in procedure room or may call to secure a Phase I area. * If naloxone or flumazenil are used for reversal, hold in Phase I for continued monitoring from when last reversal dose was given for a minimum of 60 minutes or longer pending the nurse and/or physician discretion of patient condition before discharge to Phase II. Please call the Sedation Physician to re-evaluate and complete post-note for discharge to Phase II area. Do NOT discharge from procedure sedation or Phase 1 until post- sedation evaluation note is complete by procedure /sedation MD Sedation Discharge Instructions to be given to the patient at discharge to home.
[2023-06-19] MEDS ORDERED: STAT IV Infusion **Titration per Protocol STA (17:26)
[2023-06-19] MEDS ORDERED: 0.2 MICRON FILTER SET 1 EACH IV ONE (17:26)
--- NOTE | 2023-06-19 17:36 | Cardiac Catheterization ---
[facility] Data: Endocrinologist Cardiac Status Clinical evaluation leading to the procedure CAD Presenation: STEMI Anginal Classification: CCS IV Diagnostic Physicians Name: Bk Woodward MD Closure Device Recommendations: PCI without planned CABG Cardiac Cath Procedure Full Procedure Date June 19, 2023 Pre-Procedure Diagnosis Pre-Procedure Diagnosis: STEMI AUC Score AUC Score: 9 Post-Procedure Diagnosis Post-Procedure Diagnosis: Severe CAD, Successful PCI and Elevated Intracardiac Pressures Procedure(s) Performed Procedure(s) Performed: Coronary Angiography and Left Heart Cath Educational Paraprofessional Bk Woodward MD Food Runner(s) [place] Estimated Blood Loss Estimated Blood Loss: 15 Medication(s) Medication(s): Fentanyl, Heparin, Lidocaine 1%, Nicardipine, Nitroglycerin and Versed Medication(s): Ticagrelor Summary of Findings Indication: Heart alert/STEMI Access: 6Fr right radial artery Catheters: EBU 3.5 guide, diagnostic JR4 Findings: LM -normal caliber, no significant disease LAD -acute 100% proximal occlusion Circumflex -medium caliber vessel, focal 90% hazy stenosis in the midsegment after medium OM 3. Following stenosis distal vessel is ectatic with 60% stenosis in proximal left PLB. Distal AV groove circumflex provides left to right collaterals to PDA/distal RCA. RCA -dominant, medium caliber, mild diffuse proximal disease, subtotal mid occlusion with VIOLETTE I flow reconstitution in latemid segment prior to 100% chronic distal total occlusion. LVEDP -30 -- PCI -- Antithrombotic therapy: Heparin, ticagrelor, Integrilin Procedure: Hypoxic requiring nonrebreather after narcotics in ED Catheter navigated to ascending aorta over wire. Wire passed across aortic valve and LV and developed sustained VF requiring defibrillation x 1 with return to sinus rhythm Started on amiodarone infusion for continued ventricular ectopy Left main cannulated with EBU 3.5 guide Scrum Product Owner 50 wire passed across lesion into distal vessel Proximal LAD lesion predilated with 2.5 compliant balloon Started on Integrilin infusion for heavy thrombus burden Dilated lesion stented with 3.5 x 33 mm Xience drug-eluting stent extending back to almost ostium IVUS showed well apposed stent with no apparent edge complications. Mild ostial LAD residual disease. Left main without significant disease Stent post-dilated with 4.0 noncompliant balloon IC vasodilators administered for spasm Noted to have no reflow in apical LAD but secondary to showered thrombus. Gentle inflation to apical LAD with 2.0 balloon with partially improved flow. Still some residual thrombus in very small LAD as wraps around apex. Post procedure VIOLETTE 3 flow, stent well expanded with minimal residual stenosis and no apparent cardiac complications. Arterial Closure: TR band Summary: 1. Acute 100% proximal LAD occlusion 2. Severe multivessel non-culprit coronary artery disease 90% focal mid circumflex prior to ectatic distal segment -Subtotal mid RCA, 100% chronic distal RCA total occlusion with [id number] collaterals 3. Elevated intracardiac filling pressure 4. Successful PCI of proximal to mid LAD with single drug-eluting stent (3.5 x 33 mm Xience; postdilated with 4.0 NC). Recommendations: Admit to ICU for continued monitoring Loaded with ticagrelor 180 mg in Endocrinologist. Continue dual-antiplatelet therapy for at least 1 year. With apical LAD thrombus continue Integrilin infusion for 12 hours Wean norepinephrine as able Continue amiodarone infusion overnight Trend troponins until peak, High-dose statin Plan on staged PCI of mid circumflex later this hospitalization. Medical management of chronic RCA occlusion. Hemodynamics Rest Ao:: 142/76/83 Final Ao: 109/77/92 LV: 91/30 Recommendations Recommendations: PCI without planned CABG Radiation Exposure (mGy) 1696 Contrast (mls) 120 Anesthesia 3731-0535 Procedural Complication(s) None Disposition ICU I attest to the content of the Intraoperative Record and any orders documented therein. Any exceptions are noted below. [facility] Card Cath Procedure Codes Cardiac Catheterization Procedure 1: Cardiovascular Cath Procedures: 63939 Coronaries and LHC (+/-LV) Therapeutic Services & Ancillary Procedure 1: Cardiovascular Tx and Anc Procedures: 34450 IV Ultrasound (Coronary or Graft) Moderate Sedation Procedure 1: Sedation/Anesthesia: 65800 Mod Sedation by the same physician;Init15 Min Child Age 5 & Up Procedure 2: Sedation/Anesthesia: 57871 Mod Sedation by the same physician; Ea [id number] Minutes Stenting Procedure 1: Cardiovascular Stent Procedures: 94774 Perc transluminal revascularization of acute sub/total occl, aMI PG Care Time/CCT Total # of Minutes Spent Total Time Spent with Patient: Total time spent is greater than 50% in coordination of care (as documented) at patient's floor/unit and/or counseling patient:
[2023-06-19] MEDS: AMIODARONE 150MG / 100ML D5W (CATH LAB USE ONLY) IV ONE (17:56)
[2023-06-19] MEDS: ATROPINE SULFATE 0.1 MG/ML 10ML SYR IV ONE (17:56)
[2023-06-19] MEDS: AMIODARONE / D5W 360 MG/200 ML BAG IV ONE (17:57)
[2023-06-19] MEDS: EPTIFIBATIDE 75 MG/100 ML VIAL IV SCH (17:58)
[2023-06-19] MEDS: NOREPINEPHRINE/D5W 4 MG/250 ML PLCT IV SCH (17:58)
[2023-06-19] MEDS: FUROSEMIDE 40 MG/4 ML VIAL IV ONE (18:15)
--- NOTE | 2023-06-19 19:03 | Critical Care Consultation ---
Date of Consultation June 19, 2023 Assessment & Plan (1) ST elevation myocardial infarction (STEMI) involving left anterior descending (LAD) coronary artery in recovery phase: (2) CAD (coronary artery disease): Plan Reason Critically Ill: 22 YOM presented to the EMD with acute onset of chest pain, underwent ermergent cath with SUSANA to LAD and found to have residual CAD. To the ICU post procedure on Integrilin and amiodarone infusion. Neuro - No acute needs CAM ICU: NEGATIVE - Awake and appropriate Cardiac - CAD, STEMI post SUSANA to LAD, Depressed EF, Elevated PAOP/LEVDP - Patient s/p stent with residual walker river vessel CAD to RCA and Circ- continue Integrilin for 12 hours per interventional cardiology - Lasix 40mg IV given- may need to repeat later in the day as still with oxygen need and bilateral crackles with dyspnea - EF on ECHO noted at 25% prior to intervention - Levophed weaned off - should improve following diuresis and without sedation - DAPT Therapy per cardiology - high dose statin - lipid panel pending - no family history reported - Continue Amiodarone at this time for ventricular ectopy noted during cath- defer follow on therapy to cardiology. Respiratory - Hypoxia - Likely secondary from decreased EF resulting in pulmonary edema- diurese as hemodynamics allow - follow- currently doing well on 2LNC - uptitrated or NIPPV if needed GI - No acute needs - advance diet as tolerated RENAL/LYTES - No acute needs - ICU electrolyte protocol - No acute needs ENDO - NO acute needs HEME - NO acute needs ID - NO concern for infectious etiology at this time LINES/IV ACCESS - PIV Continue use of these lines DVT PROPHYLAXIS - SCDS, ASA/Brilinta, Integrilin, ambulation in morning DISPO: ICU until proven hemodynamically and electrically stable from cardiology perspective I have personally spent 45 minutes of critical care time in the direct management of this patient. This is a life/limb threatening event. This includes time spent evaluating patient, direct bedside care, chart review, placing orders, interpretation of diagnostic studies, discussion with consultants, patient, and family members, as well as other required patient management activities. This time is exclusive of all separately billable procedures, and teaching time and separate from and in addition to any other critical care service time. Thank you for allowing us to participate in the care of this patient. Please refer to my attending physician's documentation for any further recommendations. History of Present Illness Reason for Consultation: Post PCI with SUSANA to LAD Requesting Physician: Avelino Guevara MD Attending Physician: Avelino Guevara MD History of Present Illness [address] [employer]: Reports no medical history and no current medications/supplements. The patient came to the EMD today for complaints of chest pain while on the treadmill. He was noted to have ECG changes and likely acute thrombus to LAD on CTA of the chest. He was taken to the rn labor and delivery for evaluation and therapy. In the rn labor and delivery the patient was found to have 100% LAD occlusion in the proximal segment, and got SUSANA to that vessel. He was also found to have CAD in RCA 100% distal with collaterals, and 90% circumflex. Experienced ventricular ectopy during the procedure for which he was loaded with amiodarone 150mg and followed with infusion during the case. He was also noted with LVEDP of 30 in the rn labor and delivery, for which he was given 40mg of Lasix post procedure. 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 Patient was evaluated in the ICU room. He is on NC feels some shortness of breath, but is free of pain. CODE: FULL Allergies Allergy/AdvReac Type Severity Reaction Status Date / Time No Known Allergies Allergy Verified 06/19/23 15:19 Home Medications Medication Instructions Recorded Confirmed Type No Known Home Medications 06/19/23 06/19/23 History Patient History Social History Smoking Status: Never smoker Hx Alcohol Use: No Hx Substance Use: No Preferred Language: Kazakh Communication Ability: Effective Clinical Evaluator Required: No Beliefs That Will Affect Care: None Current Living Situation: Other Current Living Situation Comment: apartment with room-mate Other Information That Helps Us Care for You: No Feels Safe at Home: Yes Safety Concerns: Feels Safe At This Time Assistive Devices: Contacts Assistive Devices Comment: contacts Review of Systems Review of Systems: REVIEW OF SYSTEMS: Constitutional: No fever, sweats or chills Eyes: No diplopia, no worsening or blurred vision ENT: normal hearing, no trouble swallowing Respiratory: (+) cough, dyspnea , NO sputum, Cardiovascular: No chest pain currently, tightness or palpitations Abdomen: No pain, nausea, vomiting, diarrhea or constipation Musculoskeletal: No joint pain, calf pain, swelling Neurologic: No weakness, numbness/tingling, or balance problems Psychiatric: No anxiety or depression Skin: No rash or itch Physical Exam Physical Exam: PHYSICAL EXAM: General: awake, alert, no apparent distress Head: Normocephalic, atraumatic ENT: PERRL, EOMI, no pharyngeal exudate, mucous membranes moist Neuro: AAO x 3, speech clear and appropriate, strength intact bilaterally 5/5, sensation intact and equal all extremities and dermatomes, no pronator drift Chest: equal rise and fall of the chest, no accessory muscle use, no heaves or thrills, scattered crackles throughout bilaterally on 2LNC humidified Cardiac: Regular rate and rhythm, telemetry reviewed- NSR, skin warm dry, cap refill <3 seconds, peripheral pulses +2 no JVD, no murmur, no edema GI: NABS x 4 quadrants, soft, nontender to palpation, no rebound, guarding or tenderness : Spontaneously voiding, no pain, no CVA tenderness, Extremities: Normal inspection, no peripheral edema or erythema, calfs nontender to palpation Psych: Normal mood and affect Skin: no rash or erythema Results & Data Results & Data Vital Signs (Past 12 Hours) Vital Signs Temp Pulse Pulse Resp BP BP Pulse Ox 06/19/23 18:15 121/73 06/19/23 18:15 88 20 89 L 06/19/23 18:01 93 H 22 96 06/19/23 18:01 121/77 06/19/23 18:00 91 H 19 97 06/19/23 17:45 135/86 06/19/23 17:45 89 27 H 89 L 06/19/23 17:38 89 27 H 93 06/19/23 17:38 127/80 06/19/23 17:36 06/19/23 17:36 93 H 26 H 127/80 92 06/19/23 17:33 06/19/23 17:33 88 06/19/23 17:30 132/84 06/19/23 17:30 92 H 27 H 06/19/23 17:28 104 H 32 H 06/19/23 17:26 117/96 06/19/23 15:47 89 20 93 06/19/23 15:45 74 22 96 06/19/23 15:45 121/77 06/19/23 15:41 36.6 C 06/19/23 15:40 95 06/19/23 15:40 82 L 06/19/23 15:31 85 24 87 L 06/19/23 15:31 114/79 06/19/23 15:30 90 25 H 91 06/19/23 15:20 77 13 93 06/19/23 15:18 83 06/19/23 15:16 133/84 06/19/23 15:16 83 10 L 84 L 06/19/23 15:16 80 20 134/95 94 06/19/23 15:10 91 H 17 100 06/19/23 15:02 36.5 C 06/19/23 15:00 134/95 06/19/23 15:00 83 14 94 06/19/23 14:55 55 L 23 91 06/19/23 14:55 100/65 06/19/23 14:54 55 L 23 97 06/19/23 14:40 59 L 17 98 06/19/23 14:40 130/89 06/19/23 14:37 100 06/19/23 14:30 57 L 16 100 06/19/23 14:30 127/92 06/19/23 14:27 63 20 100 06/19/23 14:27 100 Pulse Ox O2 Del Method O2 Del Method O2 Flow Rate O2 Flow Rate 06/19/23 18:15 06/19/23 18:15 06/19/23 18:01 Nasal Cannula 6 06/19/23 18:01 06/19/23 18:00 06/19/23 17:45 06/19/23 17:45 06/19/23 17:38 06/19/23 17:38 06/19/23 17:36 Nasal Cannula 6 06/19/23 17:36 Oxymask 06/19/23 17:33 90 Nasal Cannula 6 06/19/23 17:33 06/19/23 17:30 06/19/23 17:30 06/19/23 17:28 06/19/23 17:26 06/19/23 15:47 06/19/23 15:45 06/19/23 15:45 06/19/23 15:41 06/19/23 15:40 Oxymask 10 06/19/23 15:40 Room Air 06/19/23 15:31 06/19/23 15:31 06/19/23 15:30 06/19/23 15:20 06/19/23 15:18 06/19/23 15:16 06/19/23 15:16 06/19/23 15:16 Room Air 06/19/23 15:10 06/19/23 15:02 06/19/23 15:00 06/19/23 15:00 06/19/23 14:55 06/19/23 14:55 06/19/23 14:54 06/19/23 14:40 06/19/23 14:40 06/19/23 14:37 Room Air 06/19/23 14:30 06/19/23 14:30 06/19/23 14:27 06/19/23 14:27 Room Air Laboratory Results Abnormal lab results 06/19/23 06/19/23 06/19/23 Range/Units 14:25 16:21 18:29 Total Abs Lymphocytes 4.45 H (1.2-3.4) K/uL Monocytes # (Manual) 0.62 H (0.11-0.59) K/uL Activ Coag Time Kaolin 298 H (94-140) SECONDS Glucose 130 H (70-99(Fasting)) mg/dl POC Glucose 121 H (70-99) mg/dl Lipase 8 L (11-82) U/L Diagnostic Findings Chest X-Ray 06/19/23 14:23 XR chest 1V portable HISTORY: 22 years-old Male Chest pain, nonspecific COMPARISON: CTA chest of same day TECHNIQUE: AP view of the chest FINDINGS: Cardiac silhouette is upper limits of normal in size. No pneumothorax, pleural effusion or airspace consolidation. The bones appear intact. IMPRESSION: No acute process. ACT 112: Negative or not required by law. The above report was generated using voice recognition software. It may contain grammatical, syntax or spelling errors. Electronically signed by: Guillaume Morrell M.D. 06/19/2023 2:58 PM Chest CTA 06/19/23 14:37 CT angio chest dissec wo/w con CT DOSE: 693.09 mGy.cm HISTORY: 22 years-old Male with CP. Acute chest pain with shortness of breath TECHNIQUE: Multiple CTA images of the chest were obtained both with and without the intravenous administration of 119 ml Optiray. Coronal and sagittal MIPS were obtained from the axial data set and were submitted for review. All measurements were obtained according to NASCET criteria. A dose lowering technique was utilized adhering to the principles of ALARA. COMPARISON: Chest radiograph of same day FINDINGS: CTA: The heart is mildly enlarged. No pericardial effusion. Bovine morphology of the thoracic aortic arch. Patency of the imaged great vessels without thoracic aortic aneurysm, dissection or intramural hematoma. No pulmonary emboli identified. The coronary arteries are not well evaluated without cardiac gating however there is a 1.6 cm focus of soft tissue density noted on image 110 series 7 within the region of the left anterior descending artery.. CT CHEST: Unremarkable thyroid. Thymic tissue in the anterior mediastinum. No pathologically enlarged lymph nodes identified. There is no pneumothorax, pleural effusion, or airspace consolidation, pulmonary edema or suspicious pulmonary nodule. The central airways are patent. No acute upper abdominal abnormality. Unremarkable soft tissues. No acute fracture. IMPRESSION: 1. Unremarkable appearance of the thoracic aorta and pulmonary artery. 2. The coronary arteries are not well evaluated without cardiac gating CT. Within the limitations of the study, there is focal abnormality involving the proximal to mid aspect of the left anterior descending artery which should be correlated with EKG and laboratory analysis in order to exclude a thrombus. ACT 112: Negative or not required by law. The above report was generated using voice recognition software. It may contain grammatical, syntax or spelling errors. Electronically signed by: Guillaume Morrell M.D. 06/19/2023 3:20 PM Medications Administered Home Medications No Known Home Medications 06/19/23 [History Confirmed 06/19/23] Active Medications Acetaminophen (Acetaminophen 325 Mg Tab) 650 mg PO Q4H PRN PRN Reason: MILD Pain (Scale 1,2,3) Stop: 07/19/23 17:20 Aspirin (Aspirin 81 Mg Ectab) 81 mg PO [facility] Stop: 07/20/23 08:59 Atorvastatin Calcium (Atorvastatin 40 Mg Tab) 80 mg PO [facility] Stop: 07/20/23 08:59 Eptifibatide (Integrilin) 75 mg in 100 mls @ 12.448 mls/hr IV .Q8H2M [facility]; Protocol Stop: 06/20/23 06:00 Last Admin: 06/19/23 17:58 Dose: 2 mcg/kg/min, 12.4 mls/hr Amiodarone HCl/Dextrose (Nexterone / D5w) 360 mg in 200 mls @ 33.333 mls/hr IV ONE ONE; Protocol Stop: 06/19/23 23:25 Last Admin: 06/19/23 17:57 Dose: 1 mg/min, 33.3 mls/hr Norepinephrine Bitartrate (Levophed/D5w) 4 mg in 250 mls @ 14.588 mls/hr IV .Q17H9M [facility]; Protocol Stop: 07/19/23 17:29 Last Admin: 06/19/23 17:58 Dose: Not Given Amiodarone HCl/Dextrose (Nexterone / D5w) 360 mg in 200 mls @ 16.667 mls/hr IV .Q12H [facility] Stop: 07/19/23 17:29 Miscellaneous (Icu Protocol For Hyperglycemia) 1 each N/A ACHS [facility] Stop: 06/21/23 20:59 Nitroglycerin (Nitroglycerin Sl 0.4 Mg/Tab Tab) 0.4 mg SL Q5M PRN PRN Reason: Chest Pain Stop: 07/19/23 17:20 Pantoprazole Sodium (Pantoprazole 40 Mg Tab) 40 mg PO QAM [facility] Stop: 07/20/23 08:59 Ticagrelor (Ticagrelor 90 Mg Tab) 90 mg PO BID [facility] Stop: 07/20/23 08:59 ECG Additional Comments: Sinus bradycardia Nonspecific ST abnormality Abnormal ECG No previous ECGs available Coding Level of Care Code 11978 IN/OBS CONSULT LVL 4,60M Diagnoses ST elevation myocardial infarction (STEMI) involving left anterior descending (LAD) coronary artery in recovery phase I21.02 CAD (coronary artery disease) I25.10
[2023-06-19] MEDS: INFLUENZA VIRUS QUADRIVALENT VACCINE (IIV4) 0.5 ML SYR IM ONE (19:30)
--- NOTE | 2023-06-19 20:16 | XCELERA ---
[id number]
[2023-06-19] MEDS: POTASSIUM CHLORIDE CRTAB 20 MEQ TABCR PO STA (21:30)
[2023-06-19] MEDS: ICU Protocol for HYPERglycemia SCH (21:35)
[2023-06-19] MEDS ORDERED: Nursing to Pharmacy Communication SCH (22:00)
[2023-06-19] MEDS: POTASSIUM CHLORIDE / WTR 10 MEQ/100 ML PLCT IV SCH (22:05)
[2023-06-19 22:20] LABS: Magnesium 1.7 mg/dl (1.7-2.4)
[2023-06-19 22:34] LABS: Troponin I High Sensitivity 26085.6 pg/ml (0-20)
[2023-06-19] MEDS: AMIODARONE / D5W 360 MG/200 ML BAG IV SCH (22:49)
[2023-06-19] MEDS: MAGNESIUM SULFATE / D5W 1 GM/100 ML BAG IV SCH (23:19)
[2023-06-20 04:49] LABS: Basophils # (auto) 0.03 K/uL (0.00-0.20); Basophils % (auto) 0.3 %; Eosinophils # (auto) 0.01 K/uL (0.00-0.50); Eosinophils % (auto) 0.1 %; Hematocrit (blood only) 43.5 % (42.0-52.0); Hemoglobin 14.4 g/dl (14.0-18.0); Immature Granulocytes # (auto) 0.03 K/uL (0.01-0.20); Immature Granulocytes % (auto) 0.3 %; Lymphocytes # (auto) 2.08 K/uL (1.20-3.40); Mean Corpuscular Hemoglobin 27.9 pg (25.0-34.0); Mean Corpuscular Hgb Conc 33.1 g/dL (32.0-36.0); Mean Corpuscular Volume 84.3 fL (80.0-100.0); Mean Platelet Volume 11.1 fL (9.4-12.4); Monocytes # (auto) 0.49 K/uL (0.11-0.59); Monocytes % (auto) 5.2 %; Neutrophils # (auto) 6.82 K/uL (1.40-6.50); Neutrophils % (auto) 72.1 %; Platelet Count 219 K/uL (130-400); RDW Coefficient of Variation 13.3 % (11.5-14.5); RDW Standard Deviation 41.2 fL (36.4-46.3); Red Blood Count 5.16 M/uL (4.70-6.10); White Blood Count 9.46 K/ul (4.8-10.8)
[2023-06-20] MEDS: FUROSEMIDE INJ 20 MG/2 ML VIAL IV ONE (05:04)
[2023-06-20 05:06] LABS: Anion Gap 7 (3-11); BUN Creatinine Ratio 11.4 (10-20); Blood Urea Nitrogen 9 mg/dl (6-23); Calcium 8.7 mg/dl (8.6-10.3); Carbon Dioxide 26 mmol/L (21-32); Chloride 102 mmol/L (98-107); Est GFR (African American) 146.7 ml/min; Est GFR (Non-African American) 126.6 ml/min; Glucose 127 mg/dl (70-99(Fasting)); Sodium 135 mmol/L (136-145)
[2023-06-20 05:24] LABS: Chol HDL Ratio 14.6 (0-5); Cholesterol 483 mg/dl (0-200); HDL Cholesterol 33 mg/dl; LDL Cholesterol Direct 434 mg/dl; Magnesium 2.8 mg/dl (1.7-2.4); Triglycerides 153 mg/dl (0-150); VLDL Cholesterol 31 mg/dl (0-30)
[2023-06-20] MEDS: ONDANSETRON INJ 2 MG/ML 2 ML VIAL IV PRN (06:19)
--- NOTE | 2023-06-20 06:57 | XRay Report ---
XR chest 1V portable HISTORY: Shortness of breath. eval lung caruso/pulmonary edema COMPARISON: Chest 06/19/2023. FINDINGS: No pneumothorax. No pleural effusions. The heart remains mildly enlarged. No focal lung con solidations. No acute fractures. No evidence for pulmonary edema. IMPRESSION: Stable mild cardiomegaly. Otherwise, no acute process within the chest. ACT 112: Negative or not required by law. Electronically signed by: Armen Roger M.D. 06/20/2023 6:56 AM
--- NOTE | 2023-06-20 07:31 | Hospitalist Progress Note ---
Date of Service June 20, 2023 Assessment & Plan (1) ST elevation myocardial infarction (STEMI) involving left anterior descending (LAD) coronary artery in recovery phase: (2) CAD (coronary artery disease): (3) Hypercholesterolemia: (4) Transaminitis: Plan 1) ST elevation myocardial infarction (STEMI) involving left anterior descending (LAD) coronary artery in recovery phase: - ACS, 100% LAD occlusion, PCI c/w VF x1 Rapid onset of 8/10 - 10/10 pain after being on the treadmill for several minutes; presented to the ER for severe chest pain. - Initial EKG was with ST depressions in V4/V5 and sinusoidal T wave in V1. - Repeat EKG concerning for ST elevation in V2 and developing hyperacute T waves. Coronary artery evaluation limited by modality however was concerning for a focal abnormality at the proximal to mid LAD. Reportedly had had leg pain prior to onset of his chest pain. He was taken emergently to the [facility]. - Stat echo performed while in the ER, 25% EF, LAD territory abnormalities. - HS-Trop trended --> 77568 <-- 80441 <-- 13444 <-- 9.9 (admission) - CXR is negative; D-dimer negative; CTA of the chest without acute pulmonary disease While undergoing cardiac catheterization pt experienced an episode of V-fib and received into relation x 1 with return to sinus rhythm . Sinus rhythm at time of assessment. Also w/ periprocedural hypoxia, improving post procedure. s/p PCI with SUSANA x1 due to 100% LAD occlusion. Also w/ subtotal mid RCA/[employer], 1% chronic distal RCA with collaterals noted. Patient is planning to have a staged PCI of the mid circumflex this hospitalization due to ~ 80% blockage. 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 Dad at bedside. comfortable in bed. had lots of questions about the disease and asking about physical activity after discharge. no chest pain, shortness of breath. Acute STEMI - LAD distribution. LHC with 100 LAD occlusion. Noted collaterals. s/p PCI with DESx1 to 100% LAD occlusion and PCI of mid circumflex with single SUSANA. --Dual antiplatelet. statin/zetia. b peña. will need matt-i -- can start in am if bp stays stable. 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 continue b peña Cardiogenic shock - resolved HLD - likely familial - Direct LDL 434 started statin. outpatient genetics referral. Transaminitis - sec congestive hepatopathy. improving Subjective Following transfer to the ICU pt has had complete resolution of the pain that caused him to present to the ER. Patient reported no prior chest pain leading up to this episode, not to this or even a lesser degree. 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 Symptoms developed rapidly with a sudden escalation to 810/10 prior to admission after only being on the treadmill for short time. Denied any history of medical problems, takes no chronic medications or supplements, denied recreational drug use--specifically denied cocaine, steroid, and supplement use. Does not use tobacco products or drink alcohol. 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 He does have a family history of hypertension. Pt denied personal history of lung disease including asthma, and no history of COPD in his family. I saw the pt this morning; he was sitting up in bed. Pt has residual nausea this morning, could only eat an orange, no residual CP (0/10), AP (6/10) in epiga stric area last night, had resolved this morning. Pt will continue on amiodarone drip, as he had a VTach episode while getting cardiac catheterization. He's still complaining of nausea, ICU adding on Pepcid. Review of Systems Constitutional: + chills (after vomiting last night) Respiratory: + cough (SOB, chest terrence, and cough last night, resolved this morning), + chest congestion and + dyspnea Cardiovascular: no chest pain (as of this morning), no radiating jaw, neck or arm pain and no palpitations Gastrointestinal: + abdominal pain (last night but resolve d this morning) Musculoskeletal: no myalgia and no body aches Neurologic: no tingling and no numbness Physical Exam Constitutional: WD/WN, vitals as above Respiratory: normal respiratory effort, lungs clear to auscultation Auscultation: no crackles (no crackles noted though previous providers did note) Cardiovascular: RRR, no murmur, no edema Extremities: normal capillary refill; no calf tenderness Gastrointestinal (Abdomen): normal bowel sounds, soft, nontender, no hepatosplenomegaly Psychiatric: A+Ox3, euthymic affect Results & Data Results & Data Vital Signs (Past 12 Hours) Vital Signs Temp Pulse Resp BP Pulse Ox O2 Del Method O2 Flow Rate 06/20/23 06:01 83 23 91 06/20/23 06:01 129/79 06/20/23 06:00 84 17 87 L 06/20/23 05:30 36.7 C Nasal Cannula 2 06/20/23 05:00 113/74 06/20/23 05:00 77 17 91 06/20/23 04:00 106/64 06/20/23 04:00 68 13 91 06/20/23 03:00 107/67 06/20/23 03:00 65 17 95 06/20/23 02:00 75 19 89 L 06/20/23 02:00 98/75 L 06/20/23 01:16 36.7 C 06/20/23 01:00 106/65 06/20/23 01:00 106/65 06/20/23 01:00 106/65 06/20/23 01:00 70 15 100 06/20/23 00:50 70 16 99 06/20/23 00:40 70 16 100 06/20/23 00:30 67 16 100 06/20/23 00:20 71 18 95 06/20/23 00:10 77 20 100 06/20/23 00:00 77 18 06/20/23 00:00 113/66 06/20/23 00:00 74 06/19/23 23:50 78 15 06/19/23 23:40 71 17 100 06/19/23 23:30 80 19 97 06/19/23 23:20 77 17 06/19/23 23:10 79 22 99 06/19/23 23:00 77 20 06/19/23 23:00 114/74 06/19/23 23:00 114/74 06/19/23 22:50 80 20 95 06/19/23 22:40 79 19 93 06/19/23 22:30 79 19 94 06/19/23 22:30 118/74 06/19/23 22:20 78 20 97 06/19/23 22:15 125/65 06/19/23 22:15 80 24 93 06/19/23 22:10 86 19 100 06/19/23 22:00 112/63 06/19/23 22:00 74 18 100 06/19/23 21:50 75 22 89 L 06/19/23 21:45 79 23 06/19/23 21:45 121/86 06/19/23 21:45 121/86 06/19/23 21:40 78 18 92 06/19/23 21:30 79 18 90 06/19/23 21:30 115/84 06/19/23 21:20 94 06/19/23 21:15 77 23 91 06/19/23 21:15 116/77 06/19/23 21:10 78 26 H 91 06/19/23 21:00 69 17 95 06/19/23 21:00 113/76 06/19/23 20:50 81 17 93 06/19/23 20:45 114/74 06/19/23 20:45 81 18 93 06/19/23 20:40 79 24 92 06/19/23 20:30 76 23 93 06/19/23 20:30 115/85 06/19/23 20:20 75 16 93 06/19/23 20:15 78 21 92 06/19/23 20:15 109/84 06/19/23 20:15 109/84 06/19/23 20:10 79 18 92 06/19/23 20:00 109/83 06/19/23 20:00 79 13 93 06/19/23 20:00 36.3 C L 06/19/23 19:50 77 22 92 06/19/23 19:45 106/79 06/19/23 19:45 71 19 06/19/23 19:40 79 22 Resident Activity Tracking Resident Involvement: Resident Care Provided Care Provided: Adult Hospital Medicine
--- NOTE | 2023-06-20 07:39 | Electrocardiogram Report ---
Test Reason : Blood Pressure : / mmHG Vent. Rate : 057 BPM Atrial Rate : 057 BPM P-R Int : 160 ms QRS Dur : 086 ms QT Int : 414 ms P-R-T Axes : 030 029 029 degrees QTc Int : 402 ms Sinus bradycardia Diffuse Minor Nonspecific ST abnormality Abnormal ECG No previous ECGs available Confirmed by Tuan Hernandez ([id number]) on 06/20/2023 7:38:31 AM Referred By: Confirmed By:Tuan Hernandez
--- NOTE | 2023-06-20 07:44 | Electrocardiogram Report ---
Test Reason : Blood Pressure : / mmHG Vent. Rate : 069 BPM Atrial Rate : 069 BPM P-R Int : 160 ms QRS Dur : 084 ms QT Int : 394 ms P-R-T Axes : 062 052 029 degrees QTc Int : 422 ms Normal sinus rhythm Marked ST abnormality, possible inferior subendocardial injury ST elevation in Septal leads Abnormal ECG When compared with ECG of 19-JUN-2023 14:25, Minor ST elevation in Septal leads Confirmed by Tuan Hernandez ([id number]) on 06/20/2023 7:44:31 AM Referred By: REFERRED SELF Confirmed By:Tuan Hernandez
[2023-06-20 08:04] LABS: Estimated Average Glucose 114 mg/dl; Hemoglobin A1C 5.6 % (4.5-5.6)
--- NOTE | 2023-06-20 08:25 | Critical Care Progress Note ---
Date of Service June 20, 2023 Assessment & Plan (1) CAD (coronary artery disease): (2) ST elevation myocardial infarction (STEMI) involving left anterior descending (LAD) coronary artery in recovery phase: (3) Hypercholesterolemia: Plan Reason for ICU admission: Mr. Piedra is a 22 y/o male with PMHx of gastritis and Hypercholesterolemia managed with diet/exercise who was admitted due to STEMI, and is s/p cardiac catheterization with drug-eluding stent placed in LAD which was 100% occluded. Catheterization also found 100% occlusion in RCA and 90% occlusion in Circumflex. Admitted for monitoring. Last 24 hours: Patient refer feeling better today, and denies recurrence of his chest pain. Patient was given additional 20mg of IV Lasix this morning due to hypoxia and persistent crackles on exam. He currently does not feel SOB. CXR this morning showing mild cardiomegaly but no pulmonary edema. TTE today showing slightly improved EF (30-35% vs 25% yesterday), as well as pulmonary HTN (40-45 mmHg) and severe hypokinesis-akinesis of septum and mid to apical anterior septum. Patient only endorses having some nausea when he eats, which may be due to his known history of gastritis. He has Pantoprazole 40mg ordered qam but will add Pepcid for better symptom control. NEURO: - Neurologically intact - awake and responsive, able to converse and answer questions CARDIOVASCULAR: - Patient with STEMI, and is s/p catheterization with drug-eluding stent in LAD. Interventional cardiology planning for PCI in Circumflex during this admission, and medical management for CAD in RCA (seems to be chronic given the formation of collaterals) - Elevated LVEDP found in catheterization (30) - TTE today showing mildly improved EF (30-35%); pulmonary HTN (40-45 mmHg) - Levophed weaned off and blood pressures are stable - Medical management with DAPT with ASA 81mg and Ticagrelor, High-intensity statin (Atorvastatin 40mg) which he will likely continue after discharge - s/p Integrilin infusion for 12 hours as per intervention cardiology recommendation (completed at 6am and discontinued). - On Amiodarone infusion due to ventricular ectopy; management as per cardiology recc - Screening lipid profile in PCP office showing total cholesterol of >500, LDL of > 350, and triglycerides of 175. Advised management with lifestyle changes; no medications started, possibly due to slightly elevated liver enzymes at the time of screening labs - Lipid profile in this admission showing total cholesterol 483, LDL of 434, and triglycerides of 153. - Hgb A1c of 5.6% - Ordered TSH, liver profile - Continue trending troponin Q6h to peak PULMONARY: - No history of pulmonary disease - Currently on nasal cannula 2 lpm due to slight dyspnea last night. No recurrence this morning. GI: - History of gastritis (uses Omeprazole at home) - Due to poor control of symptoms with pantoprazole, will add Pepcid 40mg now and then 20mg bid. - GI ppx: Pantoprazole, Pepcid HEMATOLOGY: - HH stable - VTE ppx: SCDs, ambulation ID: - No concern for infectious process - abx: none RENAL/ELECTROLYTES: - Patient renal function at baseline (Cr 0.79) - No electrolyte disturbances; potassium 4, Mg slightly elevated 2.8 after replacement. ENDO: - No history of DM - Hgb A1c 5.6% - Order TSH LINES/DRAINS/ACCESS: PIV CODE STATUS: FULL CODE Admission and Anticipated Discharge Date Admission Date: June 19, 2023 Supervising Physician Co-Signing Physician Notes Patient seen and examined with resident physician. Agree with the plan as outlined above aside for any additions/exceptions noted: Patient's LFTs noted to be trending upwards. His TSH is low normal. Discussed with Dr. Woodward of cardiology and he agrees with holding on further amiodarone at this time. Differential for LFT derangements is broad including congestive hepatopathy/ischemic hepatopathy/acute amnio toxicity. Suspect the former more likely than the latter. Will obtain right upper quadrant ultrasound. TSH also low normal. Will recheck TSH tomorrow. Patient likely to undergo left heart cath tomorrow to have definitive management of his left circumflex disease. EF with evidence of ischemic cardiomyopathy. Continue dual antiplatelet therapy. Defer beta-peña to cardiology. Subjective Mr. Piedra is a 22 y/o male with PMHx of gastritis and Hypercholesterolemia managed with diet/exercise who came to the ED yesterday due to progressively worsening chest pain that began when he was exercising on a treadmill. In the ED, EKG showed ST-segment elevations in anterior leads with troponins ~ 26,000 and he was taken for catheterization. He was found to have 100% occlusion of the proximal LAD, as well as 100% occlusion of RCA that appears to be chronic given the presene of [id number] collaterals, and 90% occlusion of the Circumflex. Drug-eluding stent placed only in LAD. During procedure, patient developed ventricular ectopy, for which he was placed on Amiodarone infusion which is still running today. He was sent to the ICU for post-cath monitoring, placed on Integrillin for a total of 12 hours as per intervention cardiology recc, as well as DAPT (ASA 81mg and Ticagrelor). Cardiology planned on staged PCI of mid- circumflex during this admission, and medical management for his CAD in his RCA. TTE prior to intervention showed EF of 25% with elevated LVEDP (30), which is thought to have caused some pulmonary edema with associated hypoxia. He was given Lasix IV 40mg as management with some improvement in respiratory status, w ith repeat 20mg IV this morning due to persistent crackles. Today patient was evaluated at bedside and found to be aaox3, cooperative, and in no acute distress. He only c/o having nausea after eating but no heartburn. He denies having chest pain, SOB, weakness, or any other symptom. Review of Systems Review of Systems: All systems reviewed & are unremarkable except as noted in HPI & below Physical Exam Physical Exam: GENERAL: awake, alert, oriented in all spheres, afebrile, able to answer questions, no acute distress HEAD: atraumatic, afebrile EYES: EOM intact, R[place]ET[place] THROAT: normal to visual inspection CARDIO: RRR, no r/m/g RESPIRATORY: clear to auscultation, normal respiratory effort, nasal cannula in place (2 lpm),no respiratory distress GI: non-distended, non-tender : negative Avitia (patient able to ambulate and void spontaneously) EXTREMITIES: no swelling in bilateral LE, bandage covering right wrist (access point for catheterization) was clean/dry/intact SKIN: no rashes Results & Data Results & Data Vital Signs (Past 12 Hours) Vital Signs Temp Pulse Resp BP Pulse Ox O2 Del Method O2 Flow Rate 06/20/23 06:01 83 23 91 06/20/23 06:01 129/79 06/20/23 06:00 84 17 87 L 06/20/23 05:30 36.7 C Nasal Cannula 2 06/20/23 05:00 113/74 06/20/23 05:00 77 17 91 06/20/23 04:00 106/64 06/20/23 04:00 68 13 91 06/20/23 03:00 107/67 06/20/23 03:00 65 17 95 06/20/23 02:00 75 19 89 L 06/20/23 02:00 98/75 L 06/20/23 01:16 36.7 C 06/20/23 01:00 106/65 06/20/23 01:00 106/65 06/20/23 01:00 106/65 06/20/23 01:00 70 15 100 06/20/23 00:50 70 16 99 06/20/23 00:40 70 16 100 06/20/23 00:30 67 16 100 06/20/23 00:20 71 18 95 06/20/23 00:10 77 20 100 06/20/23 00:00 77 18 06/20/23 00:00 113/66 06/20/23 00:00 74 06/19/23 23:50 78 15 06/19/23 23:40 71 17 100 06/19/23 23:30 80 19 97 06/19/23 23:20 77 17 06/19/23 23:10 79 22 99 06/19/23 23:00 77 20 06/19/23 23:00 114/74 06/19/23 23:00 114/74 06/19/23 22:50 80 20 95 06/19/23 22:40 79 19 93 06/19/23 22:30 79 19 94 06/19/23 22:30 118/74 06/19/23 22:20 78 20 97 06/19/23 22:15 125/65 06/19/23 22:15 80 24 93 06/19/23 22:10 86 19 100 06/19/23 22:00 112/63 06/19/23 22:00 74 18 100 06/19/23 21:50 75 22 89 L 06/19/23 21:45 79 23 06/19/23 21:45 121/86 06/19/23 21:45 121/86 06/19/23 21:40 78 18 92 06/19/23 21:30 79 18 90 06/19/23 21:30 115/84 06/19/23 21:20 94 06/19/23 21:15 77 23 91 06/19/23 21:15 116/77 06/19/23 21:10 78 26 H 91 06/19/23 21:00 69 17 95 06/19/23 21:00 113/76 06/19/23 20:50 81 17 93 06/19/23 20:45 114/74 06/19/23 20:45 81 18 93 06/19/23 20:40 79 24 92 06/19/23 20:30 76 23 93 06/19/23 20:30 115/85 Coding Level of Care Code 47579 SUB INP/OBS CARE 2/35MIN Diagnoses CAD (coronary artery disease) I25.10 ST elevation myocardial infarction (STEMI) involving left anterior descending (LAD) coronary artery in recovery phase I21.02 Hypercholesterolemia E78.00 Resident Activity Tracking Resident Involvement: Resident Care Provided Care Provided: Adult Hospital Medicine
[2023-06-20] MEDS: ATORVASTATIN 40 MG TAB PO SCH (08:42)
[2023-06-20] MEDS: PANTOprazole 40 MG TAB PO SCH (08:42)
[2023-06-20] MEDS: TICAGRELOR 90 MG TAB PO SCH (08:42)
[2023-06-20] MEDS: ASPIRIN 81 MG ECTAB PO SCH (08:42)
--- NOTE | 2023-06-20 08:58 | Billing Data ---
Date of Service June 20, 2023 Coding Level of Care Code 87511 IN/OBS CONSULT LVL 2,35M
[2023-06-20 10:47] LABS: Albumin Level 4.2 gm/dl (3.4-5.0); Bilirubin,Total 0.3 mg/dl (0.2-1.0); Total Protein 7.1 gm/dl (6.0-8.3)
[2023-06-20 11:02] LABS: Thyroid Stimulating Hormone 0.432 uIu/ml (0.300-4.500)
[2023-06-20] MEDS: FAMOTIDINE 40 MG TABLET PO ONE (11:26)
--- NOTE | 2023-06-20 12:10 | Electrocardiogram Report ---
Test Reason : Blood Pressure : / mmHG Vent. Rate : 093 BPM Atrial Rate : 093 BPM P-R Int : 180 ms QRS Dur : 086 ms QT Int : 368 ms P-R-T Axes : 063 058 054 degrees QTc Int : 457 ms Poor data quality, interpretation may be adversely affected Normal sinus rhythm Acute Anteroseptal infarct Abnormal ECG When compared with ECG of 19-JUN-2023 15:02, Serial changes of evolving Anteroseptal infarct ST no longer depressed in Inferior leads ST no longer depressed in Lateral leads Confirmed by Tuan Hernandez ([id number]) on 06/20/2023 12:09:29 PM Referred By: REFERRED SELF Confirmed By:Tuan Hernandez
--- NOTE | 2023-06-20 12:57 | Cardiology Progress Note ---
Date of Service June 20, 2023 Assessment & Plan (1) CAD (coronary artery disease): Plan: Anterior STEMIpost SUSANA to proximal LAD Residual 80% mid LCx. RCA [employer] 2. Ischemic cardiomyopathyEF 40% 3. Familial hypercholesterolemialikely homozygous, LDL 434 (>350 on labs 11/2022) 4. Ventricular ectopy 5. Elevated LFTs Chest pain-free this morning. Troponin has peaked. Reduced ventricular ectopy this morning. Hemodynamically stable off nor epi Improved congestion post IV Lasix No access site complications on exam LV function improved on echodo not feel will need LifeVest Continue DAPT with aspirin, ticagrelor Can stop amiodarone Start metoprolol 12.5 TID Start ARB as BP allows. Will consider spironolactone Continue atorvastatin for now. Follow LFTs. Likely switch to rosuvastatin prior to discharge. Will add ezetimibe. Suspect will likely need PCSK9 inhibitor to get LDL closer to goal Genetic testing for FH as an outpatient Plan on staged PCI of circumflex tomorrow. N.p.o. past midnight. Appreciate ICU and hospital medicine care. Admission and Anticipated Discharge Date Admission Date: June 19, 2023 Subjective Chest pain improved this morning. Some shortness of breath/nausea overnight. Breathing improved after IV Lasix x 1 around 6 AM. Telemetry reviewednonsustained VT initially, reduced ectopy this morning Repeat echocardiogram this morning shows improved LV function EF around 40%. Review of Systems Review of Systems: All systems reviewed & are unremarkable except as noted in HPI & below Physical Exam Physical Exam: General: Comfortable HEENT: Sclerae anicteric Lungs: Clear to auscultation scant crackles Cardiac: Regular rate and rhythm, no murmurs. Vascular: Right radial artery access site with no ecchymosis, hematoma. Distal pulse and sensation intact. Abdomen: Soft, nontender Extremities: Well perfused, no peripheral edema Neuro: Nonfocal Psych: Alert orient x3, normal affect and mood Results & Data Vital Signs (Past 12 Hours) Vital Signs Temp Pulse Resp BP Pulse Ox Pulse Ox O2 Del Method 06/20/23 12:00 89 19 91 06/20/23 12:00 120/83 06/20/23 11:00 93 H 29 H 06/20/23 11:00 113/73 06/20/23 10:27 100 Nasal Cannula 06/20/23 10:00 79 16 100 06/20/23 10:00 121/76 06/20/23 09:00 79 20 100 06/20/23 09:00 117/78 06/20/23 08:00 78 22 06/20/23 08:00 120/72 06/20/23 08:00 Nasal Cannula 06/20/23 08:00 98.2 F Nasal Cannula 06/20/23 08:00 97 06/20/23 08:00 Nasal Cannula 06/20/23 08:00 83 06/20/23 07:00 77 24 96 06/20/23 07:00 104/64 06/20/23 06:01 83 23 91 06/20/23 06:01 129/79 06/20/23 06:00 84 17 87 L 06/20/23 05:30 98.1 F Nasal Cannula 06/20/23 05:00 113/74 06/20/23 05:00 77 17 91 06/20/23 04:00 106/64 06/20/23 04:00 68 13 91 06/20/23 03:00 107/67 06/20/23 03:00 65 17 95 06/20/23 02:00 75 19 89 L 06/20/23 02:00 98/75 L 06/20/23 01:16 98.1 F 06/20/23 01:00 106/65 06/20/23 01:00 106/65 06/20/23 01:00 106/65 06/20/23 01:00 70 15 100 06/20/23 00:50 70 16 99 O2 Del Method O2 Flow Rate O2 Flow Rate 06/20/23 12:00 06/20/23 12:00 06/20/23 11:00 06/20/23 11:00 06/20/23 10:27 2 06/20/23 10:00 06/20/23 10:00 06/20/23 09:00 06/20/23 09:00 06/20/23 08:00 06/20/23 08:00 06/20/23 08:00 2 06/20/23 08:00 2 06/20/23 08:00 Nasal Cannula 2 06/20/23 08:00 06/20/23 08:00 06/20/23 07:00 06/20/23 07:00 06/20/23 06:01 06/20/23 06:01 06/20/23 06:00 06/20/23 05:30 2 06/20/23 05:00 06/20/23 05:00 06/20/23 04:00 06/20/23 04:00 06/20/23 03:00 06/20/23 03:00 06/20/23 02:00 06/20/23 02:00 06/20/23 01:16 06/20/23 01:00 06/20/23 01:00 06/20/23 01:00 06/20/23 01:00 06/20/23 00:50 PG Care Time/CCT Total # of Minutes Spent Total Time Spent with Patient: Total time spent is greater than 50% in coordination of care (as documented) at patient's floor/unit and/or counseling patient: Coding Level of Care Code 69787 SUB INP/OBS CARE 3/50MIN Diagnoses CAD (coronary artery disease) I25.10
[2023-06-20] MEDS: METOPROLOL TARTRATE 25 MG TAB PO SCH (13:55)
[2023-06-20] MEDS: FAMOTIDINE 20 MG TAB PO SCH (20:03)
--- NOTE | 2023-06-20 23:02 | XCELERA ---
[id number] [id number]
[2023-06-21 04:56] LABS: Basophils # (auto) 0.04 K/uL (0.00-0.20); Basophils % (auto) 0.5 %; Eosinophils # (auto) 0.07 K/uL (0.00-0.50); Eosinophils % (auto) 0.8 %; Hematocrit (blood only) 44.8 % (42.0-52.0); Hemoglobin 15.1 g/dl (14.0-18.0); Immature Granulocytes # (auto) 0.01 K/uL (0.01-0.20); Immature Granulocytes % (auto) 0.1 %; Lymphocytes # (auto) 3.24 K/uL (1.20-3.40); Lymphocytes % (auto) 38.3 %; Mean Corpuscular Hemoglobin 27.9 pg (25.0-34.0); Mean Corpuscular Hgb Conc 33.7 g/dL (32.0-36.0); Mean Corpuscular Volume 82.8 fL (80.0-100.0); Mean Platelet Volume 10.8 fL (9.4-12.4); Monocytes # (auto) 0.71 K/uL (0.11-0.59); Monocytes % (auto) 8.4 %; Neutrophils # (auto) 4.39 K/uL (1.40-6.50); Neutrophils % (auto) 51.9 %; Platelet Count 217 K/uL (130-400); RDW Coefficient of Variation 13.7 % (11.5-14.5); RDW Standard Deviation 40.7 fL (36.4-46.3); Red Blood Count 5.41 M/uL (4.70-6.10); White Blood Count 8.46 K/ul (4.8-10.8)
[2023-06-21 05:15] LABS: Albumin Level 3.9 gm/dl (3.4-5.0); BUN Creatinine Ratio 11.9 (10-20); Bilirubin Direct 0.1 mg/dl (0-0.2); Bilirubin,Total 0.5 mg/dl (0.2-1.0); Creatinine Clr Calc Pharmacy 98.5 ml/min; Est GFR (African American) 110.3 ml/min; Est GFR (Non-African American) 95.2 ml/min; Magnesium 1.9 mg/dl (1.7-2.4); Potassium 3.6 mmol/L (3.5-5.1)
[2023-06-21 05:29] LABS: Thyroid Stimulating Hormone 0.821 uIu/ml (0.300-4.500)
--- NOTE | 2023-06-21 07:02 | Ultrasound Report ---
ABDOMINAL ULTRASOUND, RIGHT UPPER QUADRANT HISTORY: Acutely elevated LFTs transaminitis. COMPARISON: CTA chest 06/19/2023 FINDINGS: Pancreas: The pancreas is obscured by bowel gas. Liver: Not well-visualized secondary to obscuring bowel gas. 3 mm echogenic focus within the left hep atic lobe may represent a nonshadowing calcification. No suspicious hepatic mass lesions. Gallbladder: No gallbladder wall thickening. Possible sludge within the gallbladder neck. No gallston es. CBD: 0.4 cm. Right kidney: No hydronephrosis. IMPRESSION: No significant abnormality identified within the right upper quadrant. ACT 112: Negative or not required by law. Electronically signed by: Guillaume Morrell M.D. 06/21/2023 6:59 AM
--- NOTE | 2023-06-21 07:10 | Pre Anesthesia Assessment ---
Date of Service June 21, 2023 Pre Sedation Assessment Vital Signs Temp Pulse Pulse Resp BP BP Pulse Ox 06/21/23 06:55 84 16 118/74 98 06/21/23 05:00 82 25 H 06/21/23 05:00 108/81 06/21/23 05:00 98.1 F 06/21/23 04:00 110/63 06/21/23 04:00 65 14 95 06/21/23 03:00 62 15 97 06/21/23 03:00 113/68 06/21/23 02:00 63 18 93 06/21/23 02:00 118/71 06/21/23 01:00 120/70 06/21/23 01:00 77 26 H 90 06/21/23 00:00 72 17 95 06/21/23 00:00 119/67 06/21/23 00:00 98.5 F 06/21/23 00:00 75 06/20/23 23:00 74 21 91 06/20/23 23:00 119/65 06/20/23 22:00 74 19 06/20/23 22:00 110/72 06/20/23 21:00 112/66 06/20/23 21:00 68 18 94 06/20/23 20:00 115/67 06/20/23 20:00 76 20 92 06/20/23 20:00 06/20/23 19:53 98.2 F 06/20/23 19:00 82 18 94 06/20/23 19:00 117/75 06/20/23 18:00 80 17 95 06/20/23 18:00 111/74 06/20/23 17:00 81 19 94 06/20/23 17:00 117/70 06/20/23 17:00 117/70 06/20/23 16:00 72 20 93 06/20/23 16:00 114/66 06/20/23 16:00 89 06/20/23 15:00 116/71 06/20/23 15:00 77 24 92 06/20/23 14:00 83 20 92 06/20/23 14:00 124/67 06/20/23 13:00 84 29 H 93 06/20/23 13:00 114/72 06/20/23 12:00 89 19 91 06/20/23 12:00 120/83 06/20/23 11:00 93 H 29 H 06/20/23 11:00 113/73 06/20/23 10:27 100 06/20/23 10:00 79 16 100 06/20/23 10:00 121/76 06/20/23 09:00 79 20 100 06/20/23 09:00 117/78 06/20/23 08:00 78 22 06/20/23 08:00 120/72 06/20/23 08:00 06/20/23 08:00 98.2 F 06/20/23 08:00 06/20/23 08:00 06/20/23 08:00 83 Pulse Ox O2 Del Method O2 Del Method O2 Flow Rate O2 Flow Rate 06/21/23 06:55 Room Air 06/21/23 05:00 06/21/23 05:00 06/21/23 05:00 06/21/23 04:00 06/21/23 04:00 06/21/23 03:00 06/21/23 03:00 06/21/23 02:00 06/21/23 02:00 06/21/23 01:00 06/21/23 01:00 06/21/23 00:00 06/21/23 00:00 06/21/23 00:00 06/21/23 00:00 06/20/23 23:00 06/20/23 23:00 06/20/23 22:00 06/20/23 22:00 06/20/23 21:00 06/20/23 21:00 06/20/23 20:00 06/20/23 20:00 06/20/23 20:00 Room Air 06/20/23 19:53 06/20/23 19:00 06/20/23 19:00 06/20/23 18:00 06/20/23 18:00 06/20/23 17:00 06/20/23 17:00 06/20/23 17:00 06/20/23 16:00 06/20/23 16:00 06/20/23 16:00 06/20/23 15:00 06/20/23 15:00 06/20/23 14:00 06/20/23 14:00 06/20/23 13:00 06/20/23 13:00 06/20/23 12:00 06/20/23 12:00 06/20/23 11:00 06/20/23 11:00 06/20/23 10:27 Nasal Cannula 2 06/20/23 10:00 06/20/23 10:00 06/20/23 09:00 06/20/23 09:00 06/20/23 08:00 06/20/23 08:00 06/20/23 08:00 Nasal Cannula 2 06/20/23 08:00 Nasal Cannula 2 06/20/23 08:00 97 Nasal Cannula 2 06/20/23 08:00 Nasal Cannula 06/20/23 08:00 Cardiovascular RRR, no murmur, no edema Respiratory + respiratory effort normal Pre-Sedation Airway Assessment Smoking Status: Never smoker Hx Sleep Apnea: No Hx Difficult Intubation: No Short, Thick Neck: No Thyromental Distance: > or= 3.5 Finger Breadths Oral Cavity: + WNL Mallampati Class: II ASA: ASA2 NPO Status Date of Last Intake of Fluids: 06/20/23 Time of Last Intake of Fluids: 00:00 Date of Last Intake of Solid Food: 06/20/23 Time of Last Intake of Solid Foods: 00:00 Procedure Planning Contraindications for Sedation: none Current Medications Reviewed: Yes Notes The planned sedation has been discussed with the patient. Informed Consent was obtained. I have identified the patient, determined the appropriateness of sedation and have assessed the patient immediately prior to the procedure. All medicine(s) and interventions are by my order.
--- NOTE | 2023-06-21 07:21 | Hospitalist Progress Note ---
Date of Service June 21, 2023 Assessment & Plan (1) ST elevation myocardial infarction (STEMI) involving left anterior descending (LAD) coronary artery in recovery phase: (2) CAD (coronary artery disease): (3) Hypercholesterolemia: (4) Transaminitis: Plan 1) ST elevation myocardial infarction (STEMI) involving left anterior descending (LAD) coronary artery in recovery phase: - ACS, 100% LAD occlusion, PCI c/w VF x1 Rapid onset of 8/10 - 10/10 pain after being on the treadmill for several minutes; presented to the ER for severe chest pain. - Initial EKG was with ST depressions in V4/V5 and sinusoidal T wave in V1. - Repeat EKG concerning for ST elevation in V2 and developing hyperacute T waves. Coronary artery evaluation limited by modality however was concerning for a focal abnormality at the proximal to mid LAD. Reportedly had had leg pain prior to onset of his chest pain. He was taken emergently to the [facility]. - Stat echo performed while in the ER, 25% EF, LAD territory abnormalities. - HS-Trop trended --> 32110 <-- 43817 <-- 57278 <-- 9.9 (admission) - CXR is negative; D-dimer negative; CTA of the chest without acute pulmonary disease While undergoing cardiac catheterization pt experienced an episode of V-fib and with return to sinus rhythm following amiodarone administration. Sinus rhythm at time of assessment. Also w/ periprocedural hypoxia, improving post procedure. s/p PCI with SUSANA x1 due to 100% LAD occlusion. - subtotal mid RCA/RN HOME CARE, 1% chronic distal RCA with collaterals noted. - s/p PCI of the left circumflex showed ~ 90% blockage, placed a SUSANA. 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, should F/U w/ genetic testing w/ PCP - Apolipoprotein B and Lipoprotein a pending 3) Transaminitis - Transaminitis: AST 245 <-- 27, ALT 70 <-- 44, likely due to hypoperfusion following OH - repeat CMP Disposition: ICU CODE STATUS: Full code Diet: Heart healthy Admission and Anticipated Discharge Date Admission Date: June 19, 2023 Supervising Physician Co-Signing Physician Notes Attending Physician Supervision Note: I independently interviewed and examined the patient and verified the cochran history and physical, reviewed labs and image studies and agree with findings and care plan noted above. Dad at bedside. comfortable in bed. had lots of questions about the disease and asking about physical activity after discharge. no chest pain, shortness of breath. Acute STEMI - LAD distribution. LHC with 100 LAD occlusion. Noted collaterals. s/p PCI with DESx1 to 100% LAD occlusion and PCI of mid circumflex with single SUSANA. --Dual antiplatelet. statin/zetia. b peña. will need matt-i -- can start in am if bp stays stable. 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 continue b peña Cardiogenic shock - resolved HLD - likely familial - Direct LDL 434 started statin. outpatient genetics referral. Transaminitis - improving Subjective Following transfer to the ICU pt has had complete resolution of the pain that caused him to present to the ER. Patient reported no prior chest pain leading up to this episode, not to this or even a lesser degree. 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 Symptoms developed rapidly with a sudden escalation to 810/10 prior to admission after only being on the treadmill for short time. Denied any history of medical problems, takes no chronic medications or supplements, denied recreational drug use--specifically denied cocaine, steroid, and supplement use. Does not use tobacco products or drink alcohol. Pt also is senior at [employer] studying [employer] science, w/ no known family history of heart disease, diabetes, or sudden cardiac . He does have a fa stephani history of hypertension. Pt denied personal history of lung disease including asthma, and no history of COPD in his family. I saw the pt this morning; he was sitting up in bed. Pt has residual nausea this morning, could only eat an orange, no residual CP (0/10), AP (6/10) in epigastric area last night, had resolved this morning. Pt will continue on amiodarone drip, as he had a VTach episode while getting cardiac catheterization. He's still complaining of nausea, ICU adding on Pepcid. Review of Systems Constitutional: no fever and no chills Respiratory: no cough (SOB, chest terrence, and cough at admission still not returned), no chest congestion and no dyspnea Cardiovascular: no chest pain (as of this morning), no radiating jaw, neck or arm pain and no palpitations Gastrointestinal: no abdominal pain Musculoskeletal: no myalgia and no body aches Neurologic: no tingling and no numbness Physical Exam Constitutional: WD/WN, vitals as above Respiratory: normal respiratory effort, lungs clear to auscultation Auscultation: no crackles Cardiovascular: RRR, no murmur, no edema Extremities: normal capillary refill; no calf tenderness Gastrointestinal (Abdomen): normal bowel sounds, soft, nontender, no hepatosplenomegaly Psychiatric: A+Ox3, euthymic affect Results & Data Results & Data Vital Signs (Past 12 Hours) Vital Signs Temp Pulse Pulse Resp BP BP Pulse Ox 06/21/23 06:55 84 16 118/74 98 06/21/23 05:00 82 25 H 06/21/23 05:00 108/81 06/21/23 05:00 36.7 C 06/21/23 04:00 110/63 06/21/23 04:00 65 14 95 06/21/23 03:00 62 15 97 06/21/23 03:00 113/68 06/21/23 02:00 63 18 93 06/21/23 02:00 118/71 06/21/23 01:00 120/70 06/21/23 01:00 77 26 H 90 06/21/23 00:00 72 17 95 06/21/23 00:00 119/67 06/21/23 00:00 36.9 C 06/21/23 00:00 75 06/20/23 23:00 74 21 91 06/20/23 23:00 119/65 06/20/23 22:00 74 19 06/20/23 22:00 110/72 06/20/23 21:00 112/66 06/20/23 21:00 68 18 94 06/20/23 20:00 115/67 06/20/23 20:00 76 20 92 06/20/23 20:00 06/20/23 19:53 36.8 C O2 Del Method 06/21/23 06:55 Room Air 06/21/23 05:00 06/21/23 05:00 06/21/23 05:00 06/21/23 04:00 06/21/23 04:00 06/21/23 03:00 06/21/23 03:00 06/21/23 02:00 06/21/23 02:00 06/21/23 01:00 06/21/23 01:00 06/21/23 00:00 06/21/23 00:00 06/21/23 00:00 06/21/23 00:00 06/20/23 23:00 06/20/23 23:00 06/20/23 22:00 06/20/23 22:00 06/20/23 21:00 06/20/23 21:00 06/20/23 20:00 06/20/23 20:00 06/20/23 20:00 Room Air 06/20/23 19:53 Resident Activity Tracking Resident Involvement: Resident Care Provided Care Provided: Adult Hospital Medicine
[2023-06-21] MEDS: fentaNYL citrate PF 100 MCG/2 ML VIAL ONE (08:08)
[2023-06-21] MEDS: niCARdipine HCL INJ 2.5 MG/ML 10 ML AMP ONE (08:09)
[2023-06-21] MEDS: HEPARIN (PORCINE) 1000 UNIT/ML 10 ML (CATH LAB USE ONLY) ONE (08:09)
[2023-06-21] MEDS: NITROGLYCERIN/D5W 100MCG/ML 20ML SYR ONE (08:10)
[2023-06-21] MEDS: OPTIRAY 350 ONE (08:10)
[2023-06-21] MEDS: MIDAZOLAM HCL 1 MG/ML 2ML VIAL ONE ×2 (08:10→08:11)
[2023-06-21] MEDS: LIDOCAINE 1% LOCAL 20 ML VIAL ONE (08:11)
--- NOTE | 2023-06-21 08:16 | Post Anesthesia Assessment ---
Date of Service June 21, 2023 Post Sedation Assessment Vital Signs Temp Pulse Pulse Resp BP BP Pulse Ox 06/21/23 06:55 84 16 118/74 98 06/21/23 05:00 82 25 H 06/21/23 05:00 108/81 06/21/23 05:00 98.1 F 06/21/23 04:00 110/63 06/21/23 04:00 65 14 95 06/21/23 03:00 62 15 97 06/21/23 03:00 113/68 06/21/23 02:00 63 18 93 06/21/23 02:00 118/71 06/21/23 01:00 120/70 06/21/23 01:00 77 26 H 90 06/21/23 00:00 72 17 95 06/21/23 00:00 119/67 06/21/23 00:00 98.5 F 06/21/23 00:00 75 06/20/23 23:00 74 21 91 06/20/23 23:00 119/65 06/20/23 22:00 74 19 06/20/23 22:00 110/72 06/20/23 21:00 112/66 06/20/23 21:00 68 18 94 06/20/23 20:00 115/67 06/20/23 20:00 76 20 92 06/20/23 20:00 06/20/23 19:53 98.2 F 06/20/23 19:00 82 18 94 06/20/23 19:00 117/75 06/20/23 18:00 80 17 95 06/20/23 18:00 111/74 06/20/23 17:00 81 19 94 06/20/23 17:00 117/70 06/20/23 17:00 117/70 06/20/23 16:00 72 20 93 06/20/23 16:00 114/66 06/20/23 16:00 89 06/20/23 15:00 116/71 06/20/23 15:00 77 24 92 06/20/23 14:00 83 20 92 06/20/23 14:00 124/67 06/20/23 13:00 84 29 H 93 06/20/23 13:00 114/72 06/20/23 12:00 89 19 91 06/20/23 12:00 120/83 06/20/23 11:00 93 H 29 H 06/20/23 11:00 113/73 06/20/23 10:27 100 06/20/23 10:00 79 16 100 06/20/23 10:00 121/76 06/20/23 09:00 79 20 100 06/20/23 09:00 117/78 O2 Del Method O2 Flow Rate 06/21/23 06:55 Room Air 06/21/23 05:00 06/21/23 05:00 06/21/23 05:00 06/21/23 04:00 06/21/23 04:00 06/21/23 03:00 06/21/23 03:00 06/21/23 02:00 06/21/23 02:00 06/21/23 01:00 06/21/23 01:00 06/21/23 00:00 06/21/23 00:00 06/21/23 00:00 06/21/23 00:00 06/20/23 23:00 06/20/23 23:00 06/20/23 22:00 06/20/23 22:00 06/20/23 21:00 06/20/23 21:00 06/20/23 20:00 06/20/23 20:00 06/20/23 20:00 Room Air 06/20/23 19:53 06/20/23 19:00 06/20/23 19:00 06/20/23 18:00 06/20/23 18:00 06/20/23 17:00 06/20/23 17:00 06/20/23 17:00 06/20/23 16:00 06/20/23 16:00 06/20/23 16:00 06/20/23 15:00 06/20/23 15:00 06/20/23 14:00 06/20/23 14:00 06/20/23 13:00 06/20/23 13:00 06/20/23 12:00 06/20/23 12:00 06/20/23 11:00 06/20/23 11:00 06/20/23 10:27 Nasal Cannula 2 06/20/23 10:00 06/20/23 10:00 06/20/23 09:00 06/20/23 09:00 Recovery Score Activity: Moves 4 extremities Respiration: Deep Breath/Cough Circulation: +/-20% PreAnes Value Consciousness: Fully Awake Oxygen Saturation: O2 needed for >90% Discharge Sedation Level of Care: Fast Track Phase II Post Sedation Plan On clinical assessment, the patient appears to have tolerated the sedation without complications. Patient is recovering as anticipated. Patient will continue to be monitored by nursing and may be discharged when sedation discharge criteria are met per below protocol. Upon Completions of procedure up to 15 minutes continue every 5 minute vital signs and the P.A.R. score; then discharge to a Phase I or Fast Track to Phase II per the following guidelines: * Discharge Patient to appropriate Phase II area if PAR is 8 or greater or return to pre- procedure baseline. The post - procedure orders will be as directed. * If PAR score is less than 8 or not return to pre-procedure baseline then patient will follow Phase I monitoring till PAR is reached for Phase II. The Phase I may be done in procedure room or may call to secure a Phase I area. * If naloxone or flumazenil are used for reversal, hold in Phase I for continued monitoring from when last reversal dose was given for a minimum of 60 minutes or longer pending the nurse and/or physician discretion of patient condition before discharge to Phase II. Please call the Sedation Physician to re-evaluate and complete post-note for discharge to Phase II area. Do NOT discharge from procedure sedation or Phase 1 until post- sedation vic luation note is complete by procedure /sedation MD Sedation Discharge Instructions to be given to the patient at discharge to home.
--- NOTE | 2023-06-21 08:17 | Post Operative Brief Note ---
Cardiology Brief Post Op Date of Surgery June 21, 2023 Pre & Post Diagnosis Operation Date: 06/21/23 07:00 <No data on this case meets the specified criteria> Procedure PCI to mid LCx with single SUSANA (2.5 x 15 Xience; post-dilated with 3.0 NC). Extrusion Die Repair Manager Bk Woodward MD Layout Artist Ilene Estimated Blood Loss 15 Findings See Below Anesthesia Type RN Sedation Complications none Disposition Disposition: Surgical ICU
--- NOTE | 2023-06-21 08:51 | Critical Care Progress Note ---
Date of Service June 21, 2023 Assessment & Plan Admission and Anticipated Discharge Date Admission Date: June 19, 2023 Subjective Mr. Piedra is a 22 y/o male with PMHx of gastritis and Hypercholesterolemia managed with diet/exercise who came to the ED yesterday due to progressively worsening chest pain that began when he was exercising on a treadmill. In the ED, EKG showed ST-segment elevations in anterior leads with troponins ~ 26,000 and he was taken for catheterization. He was found to have 100% occlusion of the proximal LAD, as well as 100% occlusion of RCA that appears to be chronic given the presene of [id number] collaterals, and 90% occlusion of the Circumflex. Drug-eluding stent placed only in LAD. During procedure, patient developed ventricular ectopy, for which he was placed on Amiodarone infusion which is still running today. He was sent to the ICU for post-cath monitoring, placed on Integrillin for a total of 12 hours as per intervention cardiology recc, as well as DAPT (ASA 81mg and Ticagrelor). Cardiology planned on staged PCI of mid- circumflex during this admission, and medical management for his CAD in his RCA. TTE prior to intervention showed EF of 25% with elevated LVEDP (30), which is thought to have caused some pulmonary edema with associated hypoxia. He was given Lasix IV 40mg as management with some improvement in respiratory status, with repeat 20mg IV this morning due to persistent crackles. Today patient was evaluated at bedside and found to be aaox3, cooperative, and in no acute distress. He only c/o having nausea after eating but no heartburn. He denies having chest pain, SOB, weakness, or any other symptom. Results & Data Results & Data Vital Signs (Past 12 Hours) Vital Signs Temp Pulse Pulse Resp BP BP Pulse Ox 06/21/23 08:40 65 16 124/75 96 06/21/23 08:25 86 16 122/84 98 06/21/23 06:55 84 16 118/74 98 06/21/23 05:00 82 25 H 06/21/23 05:00 108/81 06/21/23 05:00 36.7 C 06/21/23 04:00 110/63 06/21/23 04:00 65 14 95 06/21/23 03:00 62 15 97 06/21/23 03:00 113/68 06/21/23 02:00 63 18 93 06/21/23 02:00 118/71 06/21/23 01:00 120/70 06/21/23 01:00 77 26 H 90 06/21/23 00:00 72 17 95 06/21/23 00:00 119/67 06/21/23 00:00 36.9 C 06/21/23 00:00 75 06/20/23 23:00 74 21 91 06/20/23 23:00 119/65 06/20/23 22:00 74 19 06/20/23 22:00 110/72 06/20/23 21:00 112/66 06/20/23 21:00 68 18 94 O2 Del Method 06/21/23 08:40 Room Air 06/21/23 08:25 Room Air 06/21/23 06:55 Room Air 06/21/23 05:00 06/21/23 05:00 06/21/23 05:00 06/21/23 04:00 06/21/23 04:00 06/21/23 03:00 06/21/23 03:00 06/21/23 02:00 06/21/23 02:00 06/21/23 01:00 06/21/23 01:00 06/21/23 00:00 06/21/23 00:00 06/21/23 00:00 06/21/23 00:00 06/20/23 23:00 06/20/23 23:00 06/20/23 22:00 06/20/23 22:00 06/20/23 21:00 06/20/23 21:00 Coding
[2023-06-21] MEDS: EZETIMIBE 10 MG TAB PO SCH (09:47)
--- NOTE | 2023-06-21 10:05 | Critical Care Progress Note ---
Date of Service June 21, 2023 Assessment & Plan (1) CAD (coronary artery disease): (2) ST elevation myocardial infarction (STEMI) involving left anterior descending (LAD) coronary artery in recovery phase: (3) Familial hypercholesterolemia: Plan Reason for ICU admission: Mr. Piedra is a 22 y/o male with PMHx of gastritis and Hypercholesterolemia managed with diet/exercise who was admitted due to STEMI, and is s/p cardiac catheterization with drug-eluding stent placed in LAD which was 100% occluded, and Circumflex where drug-eluding stent was placed today. Catheterization also found 100% occlusion in RCA. Admitted for monitoring. Last 24 hours: Patient refer feeling better today, and denies recurrence of his chest pain. He has not had recurrence of his SOB and is able to breathe well at room air. He was taken for catheterization this morning with stent placement in circumflex artery. Patient with likely diagnosis of Familial Hypercholesterolemia. Likely to be discharged with Statin. Added Ezetimibe and considering PCSK9 inh as well for improved control of LDL. Recommend to have genetic screening as an outpatient. Telemetry with NSR. NEURO: - Neurologically intact - awake and responsive, able to converse and answer questions CARDIOVASCULAR: - Patient with STEMI, and is s/p catheterization with drug-eluding stent in LAD and Circumflex. Recommend medical management for CAD in RCA (seems to be chronic given the formation of collaterals) - TTE yesterday showing improved LV function with EF (40-45%) - Blood pressures have remained stable without the need for pressors - Medical management with DAPT with ASA 81mg and Ticagrelor, High-intensity statin (Atorvastatin 80mg). Likely to be discharged on a statin. - Started Ezetimibe; considering PCSK9 inh for better LDL control after discharge as well - Amiodarone dc yesterday; telemetry has remained in sinus rhythm; VSS - Lipid profile in this admission showing total cholesterol 483, LDL of 434, and triglycerides of 153. - Hgb A1c of 5.6% - TSH of 0.821 - Liver enzymes were rising yesterday, but improving today (AST 70 --> 56; ALT 245 --> 127). Liver US unremarkable. Initial rise may have been related to ischemic hepatopathy. - Troponins now in downward trend PULMONARY: - No history of pulmonary disease - Currently breathing at room air. Denies SOB. GI: - History of gastritis (uses Omeprazole at home) - Adequate symptom control after addition of pepcid. Denies recurrence of nausea. - GI ppx: Pantoprazole, Pepcid HEMATOLOGY: - HH stable - VTE ppx: SCDs, ambulation ID: - No concern for infectious process - abx: none RENAL/ELECTROLYTES: - Patient renal function at baseline (Cr 0.79) - Potassium currently at 3.6 (goal of > 4). Will order replacement. - Magnesium 1.9 with goal of > 2. Will order PO replacement. - Re-check BMP at 4pm. ENDO: - No history of DM - Hgb A1c 5.6% LINES/DRAINS/ACCESS: PIV CODE STATUS: FULL CODE Admission and Anticipated Discharge Date Admission Date: June 19, 2023 Supervising Physician Co-Signing Physician Notes Patient seen and examined the resident physician. Agree with the assessment and plan aside for any additions/exceptions noted: Patient underwent staged PCI to the circumflex artery today which was successful with 1 drug-eluting stent. Patient's LFTs and TSH are improved. He is maintained on aspirin and Brilinta per cardiology. He has also been started on therapy for hyperlipidemia with Zetia and atorvastatin. Electrolytes being replaced as appropriate. Beta-peña started by health information provider. Will defer disposition to cardiology. At this time no further critical care services are required and critical care team will sign off. Thank you for allowing me to participate in the care of this patient. Please call with questions. Subjective Mr. Piedra is a 22 y/o male with PMHx of gastritis and Hypercholesterolemia managed with diet/exercise who came to the ED due to progressively worsening chest pain that began when he was exercising on a treadmill. He was taken for catheterization and was found to have 100% occlusion of the proximal LAD, as well as 100% occlusion of RCA that appears to be chronic given the presence of [id number] collaterals, and 90% occlusion of the Circumflex. Drug-eluding stent placed only in LAD and repeat intervention was done today as planned to place drug-eluding stent in Circumflex artery. Repeat TTE yesterday showing improved LV function (EF of 40-45%). Today patient was evaluated at bedside and found to be aaox3, cooperative, and in no acute distress. He only c/o having discomfort in his right anterior wrist where access location for catheterization was performed. Reports his nausea has improved and has been able to eat yesterday without having nausea. Denies chest pain, SOB, fevers, chills, weakness, or any other symptom. Review of Systems Review of Systems: All systems reviewed & are unremarkable except as noted in HPI & below Physical Exam Physical Exam: GENERAL: awake, alert, oriented in all spheres, afebrile, able to answer questions, no acute distress HEAD: atraumatic, afebrile EYES: EOM intact, [place] THROAT: normal to visual inspection CARDIO: RRR, no r/m/g RESPIRATORY: clear to auscultation, normal respiratory effort, breathing at room air, no respiratory distress GI: non-distended, non-tender : negative Avitia (patient able to ambulate and void spontaneously) EXTREMITIES: no swelling in bilateral LE, no calf tenderness bilaterally SKIN: no rashes Results & Data Results & Data Vital Signs (Past 12 Hours) Vital Signs Temp Pulse Pulse Resp BP BP Pulse Ox 06/21/23 09:45 90 21 100 06/21/23 09:30 128/72 06/21/23 09:30 87 21 100 06/21/23 09:15 124/85 06/21/23 09:15 82 17 98 06/21/23 09:00 121/83 06/21/23 09:00 71 15 93 06/21/23 08:40 65 16 124/75 96 06/21/23 08:25 86 16 122/84 98 06/21/23 06:55 84 16 118/74 98 06/21/23 05:00 82 25 H 06/21/23 05:00 108/81 06/21/23 05:00 36.7 C 06/21/23 04:00 110/63 06/21/23 04:00 65 14 95 06/21/23 03:00 62 15 97 06/21/23 03:00 113/68 06/21/23 02:00 63 18 93 06/21/23 02:00 118/71 06/21/23 01:00 120/70 06/21/23 01:00 77 26 H 90 06/21/23 00:00 72 17 95 06/21/23 00:00 119/67 06/21/23 00:00 36.9 C 06/21/23 00:00 75 06/20/23 23:00 74 21 91 06/20/23 23:00 119/65 O2 Del Method 06/21/23 09:45 06/21/23 09:30 06/21/23 09:30 06/21/23 09:15 06/21/23 09:15 06/21/23 09:00 06/21/23 09:00 06/21/23 08:40 Room Air 06/21/23 08:25 Room Air 06/21/23 06:55 Room Air 06/21/23 05:00 06/21/23 05:00 06/21/23 05:00 06/21/23 04:00 06/21/23 04:00 06/21/23 03:00 06/21/23 03:00 06/21/23 02:00 06/21/23 02:00 06/21/23 01:00 06/21/23 01:00 06/21/23 00:00 06/21/23 00:00 06/21/23 00:00 06/21/23 00:00 06/20/23 23:00 06/20/23 23:00
--- NOTE | 2023-06-21 10:25 | Billing Data ---
Date of Service June 21, 2023 Coding Level of Care Code 72646 SUB INP/OBS CARE
[2023-06-21] MEDS: POTASSIUM CHLORIDE CRTAB 20 MEQ TABCR PO SCH (10:53)
[2023-06-21] MEDS: MAGNESIUM OXIDE 400 MG TAB PO SCH (10:53)
--- NOTE | 2023-06-21 10:59 | Cardiac Catheterization ---
[facility] Data: Mosquito Sprayer Cardiac Status Clinical evaluation leading to the procedure CAD Presenation: STEMI Diagnostic Physicians Name: Bk Woodward MD Closure Device Recommendations: PCI without planned CABG Cardiac Cath Procedure Full Procedure Date June 21, 2023 Pre-Procedure Diagnosis Pre-Procedure Diagnosis: CAD AUC Score AUC Score: 7 Post-Procedure Diagnosis Post-Procedure Diagnosis: Severe CAD and Successful PCI Procedure(s) Performed Procedure(s) Performed: Coronary Angiography, Drug Eluting Stent and IVUS Electric Power Superintendent Bk Woodward MD Curtain Cutter(s) Ilene Estimated Blood Loss Estimated Blood Loss: 15 Medication(s) Medication(s): Fentanyl, Heparin, Lidocaine 1%, Nicardipine, Nitroglycerin and Versed Medication(s): Ticagrelor Summary of Findings Indication: Staged PCI of mid circumflex Access: 6Fr right radial artery Catheters: EBU 3.5 guide Findings: LM -normal caliber, no significant disease LAD -proximal LAD stent widely patent with brisk VIOLETTE-3 flow to apex Circumflex -medium caliber vessel, focal 90% hazy stenosis in the midsegment after medium OM 3. Following stenosis distal vessel is ectatic with 60% stenosis in proximal left PLB. Distal AV groove circumflex provides left to right collaterals to PDA/distal RCA. -- PCI -- Antithrombotic therapy: Heparin, ticagrelor Procedure: Left main cannulated with EBU 3.5 guide Pre-procedure flow VIOLETTE 3 Nicu Rn 50 wire passed across lesion into distal left PLB Prowater wire placed into OM 3 Mid circumflex lesion predilated with 2.5 x 12 compliant balloon Dilated lesion stented with 2.5 x 15 mm Xience drug-eluting stent Stent post-dilated with 3.0 noncompliant balloon IC vasodilators administered for spasm Wire removal was noted to have mobile, hazy area and aneurysmal segment after stent. Circumflex rewired and [employer] catheter placed across stent and aneurysmal segment Moderate to severe concentric plaque noted in proximal left posterior lateral branch. Pullback through aneurysmal segment showed no thrombus or clear dissection. Appeared to have some spontaneous ultrasound contrast with swirling. Stent well apposed with no apparent edge complications. Haziness thought secondary to change in blood flow in the aneurysm and no further intervention undertaken. Post procedure VIOLETTE 3 flow, stent well expanded with minimal residual stenosis. Improved flow to collateral flow to RCA Arterial Closure: TR Band Summary: 1. Successful PCI of mid circumflex with single SUSANA (2.5 x 15 mm Xience; postdilated with 3.0 NC) Recommendations: Continue dual-antiplatelet therapy with aspirin, ticagrelor for at least 1 year Medical management of residual RCA disease Hemodynamics Rest Ao:: 120/90/130 Final Ao: 119/84/99 LV: -- Recommendations Recommendations: PCI without planned CABG Radiation Exposure (mGy) 2064 Contrast (mls) 100 Anesthesia 7386-8766 Procedural Complication(s) None Disposition ICU I attest to the content of the Intraoperative Record and any orders documented therein. Any exceptions are noted below. [facility] Card Cath Procedure Codes Therapeutic Services & Ancillary Procedure 1: Cardiovascular Tx and Anc Procedures: 65185 IV Ultrasound (Coronary or Graft) Moderate Sedation Procedure 1: Sedation/Anesthesia: 43802 Mod Sedation by the same physician;Init15 Min Child Age 5 & Up Procedure 2: Sedation/Anesthesia: 75456 Mod Sedation by the same physician; Ea [id number] Minutes Stenting Procedure 1: Cardiovascular Stent Procedures: 47008 Perc transcatheter placement of intracoronary stent(s), with ang PG Care Time/CCT Total # of Minutes Spent Total Time Spent with Patient: Total time spent is greater than 50% in coordination of care (as documented) at patient's floor/unit and/or counseling patient:
[2023-06-21 17:07] LABS: Anion Gap 8 (3-11); BUN Creatinine Ratio 13.7 (10-20); Blood Urea Nitrogen 13 mg/dl (6-23); Calcium 9.5 mg/dl (8.6-10.3); Carbon Dioxide 22 mmol/L (21-32); Chloride 107 mmol/L (98-107); Creatinine Clr Calc Pharmacy 113.1 ml/min; Est GFR (African American) 130.2 ml/min; Est GFR (Non-African American) 112.4 ml/min; Glucose 90 mg/dl (70-99(Fasting)); Sodium 137 mmol/L (136-145)
--- NOTE | 2023-06-21 23:08 | Cardiology Progress Note ---
Date of Service June 21, 2023 Assessment & Plan (1) CAD (coronary artery disease): Plan: Anterior STEMIpost SUSANA to proximal LAD Post SUSANA to mLCx. Disal LCx collaterals to RCA SINGER BACK TENDER 2. Ischemic cardiomyopathyEF 40% 3. Familial hypercholesterolemialikely homozygous, LDL 434 (>350 on labs 11/2022) 4. Ventricular ectopy 5. Elevated LFTs--down trending From a cardiac standpoint OK with discharge today. Home on: DAPT with aspirin, ticagrelor Toprol-XL 50 mg daily Losartan 25 mg daily Continue current atorvastatin, zetia. Likely switch to rosuvastatin as an outpatient Suspect will likely need PCSK9 inhibitor to get LDL closer to goal Genetic testing for FH as an outpatient Will arrange follow-up with me in 1 week. Will arrange cardiac rehab. Admission and Anticipated Discharge Date Admission Date: June 19, 2023 Subjective Well today. No recurrent chest pain. No other new issues. No events on telemetry. Review of Systems Review of Systems: All systems reviewed & are unremarkable except as noted in HPI & below Physical Exam Physical Exam: General: Comfortable HEENT: Sclerae anicteric Lungs: Clear to auscultation Cardiac: Regular rate and rhythm, no murmurs. Vascular: Right radial artery access site with no ecchymosis, hematoma. Distal pulse and sensation intact. Abdomen: Soft, nontender Extremities: Well perfused, no peripheral edema Neuro: Nonfocal Psych: Alert orient x3, normal affect and mood Results & Data Vital Signs (Past 12 Hours) Vital Signs Temp Pulse Pulse Resp BP BP Pulse Ox 06/21/23 22:00 70 15 06/21/23 21:00 88 22 06/21/23 20:00 65 16 06/21/23 19:34 118/62 06/21/23 19:34 78 14 06/21/23 19:00 79 13 06/21/23 19:00 98.1 F 82 19 131/62 95 06/21/23 17:30 84 15 06/21/23 17:02 103 H 22 06/21/23 17:01 129/72 06/21/23 16:28 77 18 100 06/21/23 16:01 113/66 06/21/23 16:01 86 28 H 90 06/21/23 16:00 79 23 98 06/21/23 16:00 86 06/21/23 15:30 82 18 100 06/21/23 15:22 100 06/21/23 14:30 78 26 H 100 06/21/23 14:00 122/72 06/21/23 14:00 85 15 100 06/21/23 13:34 06/21/23 13:30 80 21 100 06/21/23 13:00 121/84 06/21/23 13:00 78 24 100 06/21/23 12:45 75 32 H 100 06/21/23 12:30 126/69 06/21/23 12:30 80 24 98 06/21/23 12:20 123/65 06/21/23 12:20 84 21 100 06/21/23 12:15 78 19 100 06/21/23 12:00 83 29 H 98 06/21/23 11:45 87 18 100 06/21/23 11:30 129/73 06/21/23 11:30 86 15 100 06/21/23 11:15 70 17 100 O2 Del Method 06/21/23 22:00 06/21/23 21:00 06/21/23 20:00 06/21/23 19:34 06/21/23 19:34 06/21/23 19:00 06/21/23 19:00 Room Air 06/21/23 17:30 06/21/23 17:02 06/21/23 17:01 06/21/23 16:28 06/21/23 16:01 06/21/23 16:01 06/21/23 16:00 06/21/23 16:00 06/21/23 15:30 06/21/23 15:22 06/21/23 14:30 06/21/23 14:00 06/21/23 14:00 06/21/23 13:34 Room Air 06/21/23 13:30 06/21/23 13:00 06/21/23 13:00 06/21/23 12:45 06/21/23 12:30 06/21/23 12:30 06/21/23 12:20 06/21/23 12:20 06/21/23 12:15 06/21/23 12:00 06/21/23 11:45 06/21/23 11:30 06/21/23 11:30 06/21/23 11:15 PG Care Time/CCT Total # of Minutes Spent Total Time Spent with Patient: Total time spent is greater than 50% in coordination of care (as documented) at patient's floor/unit and/or counseling patient: Coding Level of Care Code 70779 SUB INP/OBS CARE 2/35MIN Diagnoses CAD (coronary artery disease) I25.10
[2023-06-22 04:40] LABS: Hematocrit (blood only) 45.7 % (42.0-52.0); Hemoglobin 15.1 g/dl (14.0-18.0); Mean Corpuscular Hemoglobin 27.9 pg (25.0-34.0); Mean Corpuscular Volume 84.5 fL (80.0-100.0); Platelet Count 203 K/uL (130-400); RDW Coefficient of Variation 13.2 % (11.5-14.5); Red Blood Count 5.41 M/uL (4.70-6.10); White Blood Count 7.82 K/ul (4.8-10.8)
[2023-06-22 04:43] VITALS: TEMP 98.2
[2023-06-22 04:51] LABS: Albumin Level 3.9 gm/dl (3.4-5.0); Bilirubin,Total 0.6 mg/dl (0.2-1.0); Calcium 9.2 mg/dl (8.6-10.3); Potassium 3.7 mmol/L (3.5-5.1)
[2023-06-22 04:57] LABS: Albumin Globulin Ratio 1.1 (0.9-2); BUN Creatinine Ratio 11.6 (10-20); Creatinine Clr Calc Pharmacy 113.1 ml/min; Est GFR (African American) 130.2 ml/min; Est GFR (Non-African American) 112.4 ml/min; Globulin 3.5 gm/dl (2.5-4.0); Total Protein 7.4 gm/dl (6.0-8.3)
--- NOTE | 2023-06-22 06:52 | Discharge Summary ---
Date of Service June 22, 2023 Admission HPI Per Admitting Provider Bruce is a 22-year-old male who presents to the ER as a heart alert. No prior cardiac hx or comorbidities. Bruce is seen At the bedside postcatheterization. Following transfer to the ICU he has had complete resolution of the pain that caused him to present to the ER. He reports he has never had chest pain leading up to this episode either of the severity he experienced or in a lesser degree. He reports that he tries to use a treadmill at least 2-3 times a week and has done so for a long time and has never had his exercise limited by chest pain or unusual shortness of breath. He reports his symptoms developed rapidly with a sudden escalation to 810/10 prior to admission after only being on the treadmill for short time. He denies any history of medical problems and takes no chronic medications or supplements. He denies recreational drug use and specifically denies cocaine, steroid use, supplement use. He does not use tobacco products or drink alcohol. 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 He reports he has no known family history of heart disease, diabetes, or sudden cardiac . He does have a family history of hypertension. Denies history of lung disease including asthma, and no history of COPD in his family. Medical History: Reviewed Medications: Reviewed Surgical History: Reviewed Family history: Reviewed Allergies: Reviewed Social History: No tobacco, etoh, or recreational drug use Code Status: Full Admission Exam Per Admitting Provider Physical Exam: General: A&Ox3. NAD. Cooperative. HEENT: Atraumatic, normocephalic. Vision/hearing grossly intact without deficit. Pupils equal and reactive to light Pulm: CTAB A&P. -wheezes, -rales, -rhonchi. Symmetrical chest rise. No increased work of breathing. No respiratory distress. Cardiac: RRR, -mrg. Radial pulses intact and symmetrical. Abdominal: Nontender, nondistended, soft. BS present. Extremities: Right radial TR band in place. Sensation intact in all fingertips. Finger flexion/extension intact bilaterally. Principal Diagnosis STEMI (ST-elevation myocardial infarction) hypercholesterolemia Discharge Exam Constitutional WD/WN, vitals as above Respiratory normal respiratory effort, lungs clear to auscultation Auscultation: no crackles Cardiovascular RRR, no murmur, no edema Extremities: normal capillary refill; no calf tenderness Gastrointestinal (Abdomen) normal bowel sounds, soft, nontender, no hepatosplenomegaly Psychiatric A+Ox3, euthymic affect Discharge Data Allergies Allergy/AdvReac Type Severity Reaction Status Date / Time No Known Allergies Allergy Verified 06/19/23 15:19 Consultations 06/19/23 15:30 ED Decision to Admit Stat 06/19/23 15:32 Consult Cardiology Stat 06/19/23 17:33 Consult Validation Technician Routine Procedures Performed Operation Date: 06/21/23 07:00 Actual Procedures p Cineradiography w/Routine Exam - Bk Woodward MD s IVUS Coronary Single Vessel - Bk Woodward MD p Drug Eluting Stent SGl Vessel - Bk Woodward MD Ordered Studies 06/19/23 08:14 CL IVUS Coronary Single Vessel Routine 06/19/23 14:37 CT angio chest dissec wo/w con Stat 06/19/23 15:42 CL Cath Imgs for PACS use only Stat 06/20/23 US abdomen [US liver] Routine 06/21/23 06:45 CL Cath Imgs for PACS use only Routine 06/21/23 08:34 CL IVUS Coronary Single Vessel Routine Hospital Course (1) ST elevation myocardial infarction (STEMI) involving left anterior descending (LAD) coronary artery in recovery phase: (2) CAD (coronary artery disease): (3) Hypercholesterolemia: (4) Transaminitis: Plan 1) ST elevation myocardial infarction (STEMI) involving left anterior descending (LAD) coronary artery in recovery phase: - ACS, 100% LAD occlusion, PCI c/w VF x1 Rapid onset of 8/10 - 10/10 pain after being on the treadmill for several minutes; presented to the ER for severe chest pain. - Stat echo performed while in the ER, 25% EF, LAD territory abnormalities. - HS-Trop trended --> 27510 <-- 33163 <-- 74046 <-- 9.9 (admission) - CXR was negative; D-dimer was negative; CTA of the chest without acute pul monary disease s/p PCI with SUSANA x1 due to 100% LAD occlusion. - subtotal mid RCA/DIRECTOR OF MUSIC THERAPY, 1% chronic distal RCA with collaterals noted. - s/p PCI of the left circumflex showed ~ 90% blockage, placed a SUSANA. 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, should F/U w/ genetic testing w/ PCP - Apolipoprotein B and Lipoprotein a pending - possibly consider further atherosclerosis screening as outpatient, considering extent of patient's coronary artery disease: -carotid Doppler ultrasound and/or transcranial Doppler 3) Transaminitis - Transaminitis: AST 70 <- 245 <- 27, ALT 45 <- 70 <- 44, likely due to hypoperfusion following MD - resolving, may consider repeating CMP as outpatient Total Time Total Time Spent Total Time Spent (In Minutes): see attending attestation Discharge Plan Discharge Items Patient Disposition: Home - Self-Care Reason For Visit: STEMI Discharge Diagnosis: STEMI Activity: Resume your previous activity Non-emergency contact: Primary Care Provider and Manager Architectural Call non-emergency contact if: your symptoms worsen and your pain is concerning for you Follow-up/Referrals: Sisi Benoit PA-C [Physician Distribution Operation Supervisor] - 06/29/23 3:00 pm ([facility] Per cardiology office, your 1 week f/u is with Dr. Woodward. ) Blessing Slater MD [Primary Care Provider] - 06/30/23 2:45 pm (f/u within 1 wk discharge) PCP,NO [Physician] - Diet: Heart Healthy Addtl Attending Provider Instructions: You were admitted to the hospital for STEMI (ST-elevation myocardial infarction) or heart attack and also found to have significant hyperlipidemia. You were treated with aspirin, ticagrelor, atorvastatin, ezetimibe, metoprolol, and losartan. A discharge summary will be sent to your primary care physician to ensure continuity of care. Please bring this discharge summary with you to your next office appointment so that your provider can review it at that time. Follow-up appointments: We have requested a follow-up appointment with your primary care physician within one week of discharge. Please call their office if you do not hear from them. We have requested a follow-up appointment with your [facility] public relations representative within one week of discharge. Please call their office if you do not hear from them. Keep all your follow-up appointments as already scheduled. If you cannot make an appointment, notify your provider. Medications: Your medication list has been reviewed and reconciled upon discharge to ensure accuracy and continuity of care. An updated list of all your medications is included with your hospital discharge paperwork. Please review this list closely, and make note of any changes. We sent a new medication called aspirin to your pharmacy. Take aspirin 81 mg/one tablet, daily regularly. We sent a new medication called ticagrelor to your pharmacy. Take ticagrelor, 90 mg, by mouth, twice a day regularly. We sent a new medication called metoprolol to your pharmacy. Take metoprolol succinate, 50 mg, by mouth, daily regularly. We sent a new medication called losartan to your pharmacy. Take losartan, 25 mg, by mouth, daily regularly. We sent a new medication called ezetimibe to your pharmacy. Take ezetimibe, 10 mg, by mouth, daily regularly. We sent a new medication called atorvastatin to your pharmacy. Take atorvastatin, 80 mg, by mouth, daily regularly. Take your medications as instructed; do not skip a dose of your medicines. Make sure all of your doctors know every medicine you are taking (including selm-keu-xnyijtj medicines, vitamins, and supplements). Call your primary care provider before taking any new medicines (including yxrk-jeb-bjcjmjk medicines, vitamins, and supplements), because some of these may interact with your current medications, or may make your symptoms worse. Tell your primary care provider if you cannot afford your medications. CONTACT YOUR PRIMARY CARE PROVIDER if you experience any of the following: chest pain, shortness of breath, arm, shoulder, or jaw pain nausea, vomiting Difficulty following your treatment plan, or difficulty taking medications CALL 911 OR GO TO THE EMERGENCY DEPARTMENT if you experience any of the following: Sudden, severe abdominal pain or nausea/vomiting Severe chest pain, or chest pain that radiates (moves) to your jaw or arm Sudden, severe shortness of breath or difficulty breathing Thank you for allowing us to participate in your care Pending Studies at Discharge: No Stand-Alone Forms: My [facility], Work/School Release, Smoking Cessation Medications and DC Order Prescriptions: New aspirin 81 mg tablet,delayed release (DR/EC) 81 mg PO DAILY Qty: 30 0RF ticagrelor 90 mg tablet 90 mg PO BID Qty: 60 0RF metoprolol succinate 50 mg tablet extended release 24 hr 50 mg PO DAILY Qty: 30 0RF ezetimibe 10 mg tablet 10 mg PO DAILY Qty: 30 0RF atorvastatin 80 mg tablet 80 mg PO DAILY Qty: 30 0RF losartan 25 mg tablet 25 mg PO DAILY Qty: 30 0RF Discharge Orders: Discharge Order (Routine); Ordered 06/22/23 Ordered By: kB Burden Admission Data Admit Date/Time: 06/19/23 17:33 Attending Provider: Corrine Hamlin Admit Provider: Bk Woodward Primary Care Provider: Blessing Slater Other Providers: Avelino Guevara; Bk Woodward; Ravi Lopez Other Interventions: Discharge Summary Assessment (RN) Last Done: 06/22/23 12:49 Supervising Physician Co-Signing Physician Notes Attending Physician Supervision Note: I independently interviewed and examined the patient and verified the cochran history and physical, reviewed labs and image studies and agree with findings and care plan noted above. Acute STEMI - LAD distribution. [facility] with 100 LAD occlusion. Noted collaterals. s/p PCI with DESx1 to 100% LAD occlusion and PCI of mid circumflex with single SUSANA. --Dual antiplatelet. statin/zetia. b peña, losartan. 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 continue b peña, ARB Cardiogenic shock - resolved HLD - likely familial - Direct LDL 434 started statin. outpatient genetics referral. Transaminitis - improved Resident Activity Tracking Resident Involvement: Resident Care Provided Care Provided: Adult Hospital Medicine
[2023-06-22 08:09] VITALS: RESP 16; O2SAT 100
[2023-06-22] MEDS: METOPROLOL SUCC 50MG EXT REL TAB PO SCH (08:09)
[2023-06-22] MEDS: LOSARTAN POTASSIUM 25 MG TAB PO SCH (08:09)
[2023-06-22] MEDS: TICAGRELOR 90 MG HOME PACK PO STA (11:28)
[2023-06-22 13:03] VITALS: BP 109/64; PULSE 72
[2023-06-24 00:58] LABS: Lipoprotein (a) 172 nmol/L (<75)
== END 2023-06-22 13:26 | disposition home or self-care (01) | DRG 321 ==
LOC: ED 14:17 → OR 15:50 → 1E 15:50 → SUATTDRO 17:33
DX: R09.02 Hypoxemia; I25.10 Atherosclerotic heart disease of native coronary artery without angina pectoris; I50.21 Acute systolic (congestive) heart failure; I47.20 Ventricular tachycardia, unspecified; I21.02 ST elevation (STEMI) myocardial infarction involving left anterior descending coronary artery; I25.5 Ischemic cardiomyopathy; I49.01 Ventricular fibrillation; I49.3 Ventricular premature depolarization; R74.01 Elevation of levels of liver transaminase levels; E78.01 Familial hypercholesterolemia; R00.1 Bradycardia, unspecified; R57.0 Cardiogenic shock